=== PATIENT | male | born 1970 | race Two or more races ===

== ENCOUNTER 2022-09-30 15:59 | Inpatient (IN) | payer MEDICAID, OTHER ==
[~2022-09-30] VITALS: Ht 172.7 cm; Wt 107.6 kg
[2022-09-30] MEDS ORDERED: ETOMIDATE (2MG/ML) 20ML VIAL IV ONE ×2 (16:03→16:45)
[2022-09-30] MEDS ORDERED: ROCURONIUM 10MG/ML 10ML VIAL IV ONE ×2 (16:04→16:45)
[2022-09-30 17:00] LABS: Basophils # (auto) 0.1 10 ^3/uL (0-0.2); Basophils % (auto) 0.7 % (0.0-2.0); Eosinophils # (auto) 0.2 10 ^3/uL (0-0.8); Eosinophils % (auto) 1.3 % (0.0-7.0); Hematocrit 46.6 % (41.0-53.0); Hemoglobin 15.3 g/dL (13.5-17.5); Lymphocytes # (auto) 5.8 10 ^3/uL (0.4-5.4); Lymphocytes % (auto) 42.6 % (10.0-50.0); Mean Corpuscular Hemoglobin 28.8 pg (28.0-32.0); Mean Corpuscular Hgb Conc. 32.9 g/dL (32.0-36.0); Mean Corpuscular Volume 87.4 fL (80.0-100.0); Monocytes # (auto) 0.6 10 ^3/uL (0-1.3); Monocytes % (auto) 4.2 % (0.0-12.0); Neutrophils % (auto) 51.2 % (37.0-80.0); Nucleated Red Blood Cells % 0.2 %; Red Blood Cells 5.33 10^6/uL (4.5-5.90); Red Cell Distribution Width 14.4 % (11.8-14.3); White Blood Cell 13.6 10^3/uL (4.4-10.8)
[2022-09-30] MEDS: NOREPINEPHRINE 8 MG/250ML KIT 250 ML IV SCH (17:00)
[2022-09-30] MEDS ORDERED: IOHEXOL 350 MG/ML 100ML IJ ONE (17:15)
[2022-09-30 17:16] LABS: Albumin 3.3 g/dL (3.4-5.0); Calcium 8.5 mg/dL (8.5-10.1); Magnesium 2.9 mg/dL (1.6-2.6); Potassium 3.3 mmol/L (3.5-5.1)
[2022-09-30 17:19] LABS: BUN/Creatinine Ratio 11.9 (10.0-20.0); Bilirubin, Total 0.9 mg/dL (0.2-1.0); Total Protein 6.8 g/dL (6.4-8.2)
[2022-09-30 17:20] LABS: Lactic Acid w/Reflex 9.6 mmol/L (0.4-2.0)
[2022-09-30 17:30] VITALS: BP 169/130
[2022-09-30] MEDS ORDERED: fentaNYL Drip 2500mCg/250mlNS 250 ML IV ONE (18:07)
[2022-09-30] MEDS: MIDAZOLAM DRIP 50 mg/50mL 50 ML IV SCH (19:06)
[2022-09-30] MEDS: fentaNYL Drip 2500mCg/250mlNS 250 ML IV SCH (19:15)
[2022-09-30 20:30] VITALS: BP 111/85
[2022-09-30] MEDS ORDERED: VANCOMYCIN PER PHARMACY 0 MG IV SCH (21:30)
[2022-09-30] MEDS ORDERED: cefTRIAXone 1GM/50ML D5W 50 ML IV ONE (21:30)
[2022-09-30] MEDS ORDERED: SOD CHL 0.9%/ KCL 20MEQ 1,000 ML IV ONE (21:45)
[2022-09-30] MEDS ORDERED: VANCOMYCIN 1GM/250ML 250 ML IV ONE (21:45)
[2022-09-30] MEDS ORDERED: ONDANSETRON HCL 4 MG/2 ML VIAL IV PRN (21:45)
[2022-09-30] MEDS ORDERED: SODIUM CHLORIDE 0.9% 1,000 ML IV SCH (21:45)
[2022-09-30] MEDS ORDERED: DEXTROSE (50%) 50ML SYRG IV PRN (21:45)
[2022-09-30] MEDS ORDERED: HEPARIN DRIP/D5W 100UNITS/ML 250 ML IV SCH (21:45)
[2022-09-30] MEDS ORDERED: HEPARIN SODIUM (PORCINE) 5000 UNITS/ML 1ML VIAL IV ONE (21:45)
[2022-09-30] MEDS: SOD CHL 0.9%/ KCL 20MEQ 1,000 ML IV SCH (22:00)
[2022-09-30 22:42] LABS: Basophils # (auto) 0.1 10 ^3/uL (0-0.2); Basophils % (auto) 0.3 % (0.0-2.0); Eosinophils # (auto) 0 10 ^3/uL (0-0.8); Eosinophils % (auto) 0.1 % (0.0-7.0); Lymphocytes # (auto) 1.6 10 ^3/uL (0.4-5.4); Lymphocytes % (auto) 8.6 % (10.0-50.0); Mean Corpuscular Hemoglobin 28.9 pg (28.0-32.0); Monocytes # (auto) 1.2 10 ^3/uL (0-1.3); Monocytes % (auto) 6.6 % (0.0-12.0); Neutrophils # (auto) 15.7 10 ^3/uL (1.6-8.6); Neutrophils % (auto) 84.4 % (37.0-80.0); Red Blood Cells 5.53 10^6/uL (4.5-5.90); Red Cell Distribution Width 14.1 % (11.8-14.3); White Blood Cell 18.6 10^3/uL (4.4-10.8)
[2022-09-30 22:50] VITALS: BP 108/81
[2022-09-30 22:50] LABS: INR 1.08 (0.9-1.15); Partial Thromboplastin Time 27.5 sec (24.6-33.4)
[2022-09-30] MEDS ORDERED: NITROGLYCERIN 0.4 MG SL TAB SL PRN (23:45)
[2022-09-30] MEDS ORDERED: MORPHINE SULFATE INJ 2 MG/ml SYRG IV PRN (23:45)
[2022-10-01] VITALS (89 sets, daily range): BP systolic 89–158; BP diastolic 59–101
[2022-10-01] MEDS: ACCU-CHEK COMFORT CURVE STRIP VI SCH ×6 (02:25→20:00)
[2022-10-01] MEDS: InsuLIN REG 1unit/0.01ml Soln (100units/ml) SC SCH ×6 (04:00→20:00)
[2022-10-01 04:40] LABS: Basophils # (auto) 0 10 ^3/uL (0-0.2); Basophils % (auto) 0.3 % (0.0-2.0); Eosinophils # (auto) 0 10 ^3/uL (0-0.8); Hematocrit 52.5 % (41.0-53.0); Hemoglobin 17.2 g/dL (13.5-17.5); Lymphocytes # (auto) 1.4 10 ^3/uL (0.4-5.4); Lymphocytes % (auto) 9.1 % (10.0-50.0); Mean Corpuscular Hemoglobin 29.2 pg (28.0-32.0); Mean Corpuscular Hgb Conc. 32.9 g/dL (32.0-36.0); Mean Corpuscular Volume 88.9 fL (80.0-100.0); Monocytes # (auto) 1.2 10 ^3/uL (0-1.3); Monocytes % (auto) 7.5 % (0.0-12.0); Neutrophils % (auto) 83.1 % (37.0-80.0); Nucleated Red Blood Cells % 0.1 %; Red Cell Distribution Width 14.7 % (11.8-14.3); White Blood Cell 15.7 10^3/uL (4.4-10.8)
[2022-10-01 04:44] LABS: Chloride 109 mmol/L (98-107); Potassium 4.1 mmol/L (3.5-5.1); Sodium 137 mmol/L (136-145)
[2022-10-01 04:49] LABS: Alanine Aminotransferase 186 U/L (16-61); Albumin 3.6 g/dL (3.4-5.0); Anion Gap 8 (5-15); Aspartate Aminotransferase 170 U/L (15-37); BUN/Creatinine Ratio 14.8 (10.0-20.0); Blood Urea Nitrogen 23 mg/dL (7-18); Calcium 8.7 mg/dL (8.5-10.1); Carbon Dioxide 20 mmol/L (21-32); GFR African American 61 mL/min; GFR Non-African American 51 mL/min; Glucose 124 mg/dL (74-106)
[2022-10-01 04:51] LABS: Alkaline Phosphatase 82 U/L (45-117); Bilirubin, Total 1.1 mg/dL (0.2-1.0); Total Protein 7.8 g/dL (6.4-8.2)
[2022-10-01 05:43] LABS: INR 1.12 (0.9-1.15)
[2022-10-01] MEDS: SOD CHL 0.9%/ KCL 20MEQ 1,000 ML IV SCH ×2 (07:46→18:55)
[2022-10-01] MEDS: cefTRIAXone 1GM/50ML D5W 50 ML IV SCH (09:13)
[2022-10-01 09:43] LABS: INR 1.1 (0.9-1.15); Partial Thromboplastin Time 66.4 sec (24.6-33.4)
[2022-10-01] MEDS: MIDAZOLAM DRIP 50 mg/50mL 50 ML IV SCH (10:02)
[2022-10-01] MEDS: FAMOTIDINE (10MG/ML) 2ML VL IV SCH (10:07)
[2022-10-01] MEDS: VANCOMYCIN 1GM/250ML 250 ML IV SCH (10:08)
[2022-10-01 12:35] LABS: Urine Bacteria FEW /hpf (None Seen); Urine Blood 2+ /uL (Negative); Urine Specific Gravity 1.036 (1.001-1.035); Urine WBC 3 /hpf (0 - 3)
[2022-10-01 13:01] LABS: Protein, Urine 55.7 mg/dL (0.0-11.9)
[2022-10-01 16:43] LABS: INR 1.12 (0.9-1.15)
[2022-10-01 16:48] LABS: Partial Thromboplastin Time 83.6 sec (24.6-33.4)
[2022-10-01] MEDS: NOREPINEPHRINE 8 MG/250ML KIT 250 ML IV SCH (17:00)
[2022-10-01] MEDS ORDERED: HEPARIN DRIP/D5W 100UNITS/ML 250 ML IV SCH (17:00)
[2022-10-01] MEDS: fentaNYL Drip 2500mCg/250mlNS 250 ML IV SCH (18:15)
[2022-10-02] VITALS (87 sets, daily range): BP systolic 88–166; BP diastolic 57–116
[2022-10-02] MEDS: ACCU-CHEK COMFORT CURVE STRIP VI SCH ×6 (00:25→20:00)
[2022-10-02 00:28] LABS: INR 1.1 (0.9-1.15); Partial Thromboplastin Time 57.3 sec (24.6-33.4)
[2022-10-02] MEDS: SOD CHL 0.9%/ KCL 20MEQ 1,000 ML IV SCH ×2 (03:36→14:54)
[2022-10-02] MEDS: VANCOMYCIN 1GM/250ML 250 ML IV SCH ×2 (03:36→23:59)
[2022-10-02] MEDS: InsuLIN REG 1unit/0.01ml Soln (100units/ml) SC SCH ×6 (04:00→20:00)
[2022-10-02 06:39] LABS: Basophils # (auto) 0.1 10 ^3/uL (0-0.2); Basophils % (auto) 0.7 % (0.0-2.0); Eosinophils # (auto) 0.1 10 ^3/uL (0-0.8); Eosinophils % (auto) 0.7 % (0.0-7.0); Hematocrit 39.3 % (41.0-53.0); Hemoglobin 13.3 g/dL (13.5-17.5); Lymphocytes # (auto) 2.4 10 ^3/uL (0.4-5.4); Lymphocytes % (auto) 19.7 % (10.0-50.0); Mean Corpuscular Hemoglobin 29.5 pg (28.0-32.0); Mean Corpuscular Hgb Conc. 33.9 g/dL (32.0-36.0); Monocytes # (auto) 0.7 10 ^3/uL (0-1.3); Monocytes % (auto) 6.1 % (0.0-12.0); Neutrophils # (auto) 8.9 10 ^3/uL (1.6-8.6); Neutrophils % (auto) 72.8 % (37.0-80.0); Red Blood Cells 4.51 10^6/uL (4.5-5.90); Red Cell Distribution Width 14.4 % (11.8-14.3); White Blood Cell 12.2 10^3/uL (4.4-10.8)
[2022-10-02] MEDS ORDERED: ACETAMINOPHEN 650 MG RECT SUPP PR ONE (06:45)
[2022-10-02] MEDS ORDERED: IODIXANOL 320MG/ML 100ML BTL IV ONE ×3 (07:35→08:42)
[2022-10-02] MEDS ORDERED: LIDOCAINE 2%HCL (LOCAL ANESTH.) INJ 20ML MDV ONE (07:35)
[2022-10-02] MEDS ORDERED: ANGIOMAX 250 MG VIAL IV ONE ×2 (07:47→08:34)
[2022-10-02] MEDS ORDERED: SODIUM CHL 0.9% 50 ML ONE ×2 (07:47→08:34)
[2022-10-02 08:25] LABS: BUN/Creatinine Ratio 12.2 (10.0-20.0); Potassium 3.5 mmol/L (3.5-5.1)
[2022-10-02 08:26] LABS: Albumin 2.7 g/dL (3.4-5.0); Bilirubin, Total 1.3 mg/dL (0.2-1.0); Calcium 8.3 mg/dL (8.5-10.1); Phosphorus 1.7 mg/dL (2.5-4.90); Total Protein 6.4 g/dL (6.4-8.2); Uric Acid 5.4 mg/dL (3.5-7.2)
[2022-10-02] MEDS ORDERED: TICAGRELOR 90 MG TAB ONE (08:53)
[2022-10-02] MEDS ORDERED: ASPirin 325 MG TAB ONE (08:53)
[2022-10-02] MEDS: ASPirin 81 mg TAB PO SCH (10:00)
[2022-10-02] MEDS: TICAGRELOR 90 MG TAB PO SCH (10:00)
[2022-10-02] MEDS: FAMOTIDINE (10MG/ML) 2ML VL IV SCH (10:09)
[2022-10-02] MEDS: cefTRIAXone 1GM/50ML D5W 50 ML IV SCH (10:09)
[2022-10-02] MEDS ORDERED: ACETAMINOPHEN 500 MG TAB PO ONE (14:30)
[2022-10-02] MEDS: ACETAMINOPHEN 500 MG TAB PO PRN (14:53)
[2022-10-02] MEDS ORDERED: DEXTROSE 10% 250 ML IV ONE (16:59)
[2022-10-02] MEDS: NOREPINEPHRINE 8 MG/250ML KIT 250 ML IV SCH (17:00)
[2022-10-02] MEDS: SODIUM CHLORIDE 0.9% 1,000 ML IV SCH (17:12)
[2022-10-02 17:36] LABS: BUN/Creatinine Ratio 9.3 (10.0-20.0); Calcium 7.9 mg/dL (8.5-10.1); Potassium 3.6 mmol/L (3.5-5.1)
[2022-10-02] MEDS: ALBUTEROL SULF 2.5 MG/0.5ML(0.5%) NEB SOLN NEB SCH ×2 (18:13→22:06)
[2022-10-02] MEDS: IPRATROPIUM BROM 0.5 MG/2.5ML INH SOL NEB SCH ×2 (18:13→22:06)
[2022-10-02] MEDS: MIDAZOLAM DRIP 50 mg/50mL 50 ML IV SCH (18:18)
[2022-10-02] MEDS: IBUPROFEN 100MG/5ML ORAL SUSP 100 MG/5 ML UD GT PRN (21:29)
[2022-10-02] MEDS: METOPROLOL TARTRATE 25 MG TAB PO SCH (22:00)
[2022-10-03] VITALS (103 sets, daily range): BP systolic 77–187; BP diastolic 43–124
[2022-10-03] MEDS: TICAGRELOR 90 MG TAB PO SCH ×3 (00:02→22:02)
[2022-10-03] MEDS: ACETAMINOPHEN 500 MG TAB PO PRN ×2 (00:12→11:41)
[2022-10-03] MEDS: ACCU-CHEK COMFORT CURVE STRIP VI SCH ×7 (00:13→23:48)
[2022-10-03] MEDS: fentaNYL Drip 2500mCg/250mlNS 250 ML IV SCH ×2 (00:53→18:15)
[2022-10-03] MEDS: NOREPINEPHRINE 8 MG/250ML KIT 250 ML IV SCH (01:51)
[2022-10-03] MEDS: ALBUTEROL SULF 2.5 MG/0.5ML(0.5%) NEB SOLN NEB SCH ×6 (02:05→22:03)
[2022-10-03] MEDS: IPRATROPIUM BROM 0.5 MG/2.5ML INH SOL NEB SCH ×6 (02:05→22:03)
[2022-10-03] MEDS: MIDAZOLAM DRIP 50 mg/50mL 50 ML IV SCH ×2 (02:45→06:41)
[2022-10-03] MEDS: InsuLIN REG 1unit/0.01ml Soln (100units/ml) SC SCH ×7 (04:00→23:48)
[2022-10-03 04:12] LABS: Hematocrit 40.3 % (41.0-53.0)
[2022-10-03 04:20] LABS: Anion Gap 9 (5-15); BUN/Creatinine Ratio 10.6 (10.0-20.0); Blood Urea Nitrogen 12 mg/dL (7-18); Carbon Dioxide 16 mmol/L (21-32); Chloride 110 mmol/L (98-107); GFR African American 88 mL/min; GFR Non-African American 73 mL/min; Glucose 107 mg/dL (74-106); Potassium 3.4 mmol/L (3.5-5.1); Sodium 135 mmol/L (136-145)
[2022-10-03 05:01] LABS: Basophils # (auto) 0.1 10 ^3/uL (0-0.2); Basophils % (auto) 0.6 % (0.0-2.0); Eosinophils # (auto) 0.3 10 ^3/uL (0-0.8); Eosinophils % (auto) 2.4 % (0.0-7.0); Hemoglobin 13.7 g/dL (13.5-17.5); Lymphocytes # (auto) 2.8 10 ^3/uL (0.4-5.4); Lymphocytes % (auto) 23.1 % (10.0-50.0); Mean Corpuscular Hemoglobin 29.1 pg (28.0-32.0); Mean Corpuscular Hgb Conc. 34.1 g/dL (32.0-36.0); Mean Corpuscular Volume 85.6 fL (80.0-100.0); Monocytes # (auto) 1.3 10 ^3/uL (0-1.3); Monocytes % (auto) 10.5 % (0.0-12.0); Neutrophils # (auto) 7.6 10 ^3/uL (1.6-8.6); Neutrophils % (auto) 63.4 % (37.0-80.0); Nucleated Red Blood Cells % 0.4 %; Red Cell Distribution Width 14.4 % (11.8-14.3)
[2022-10-03] MEDS: SODIUM CHLORIDE 0.9% 1,000 ML IV SCH (07:55)
[2022-10-03] MEDS ORDERED: VANCOMYCIN 1GM/250ML 250 ML IV SCH (08:00)
[2022-10-03] MEDS: ASPirin 81 mg TAB PO SCH (10:55)
[2022-10-03] MEDS: FAMOTIDINE (10MG/ML) 2ML VL IV SCH (10:55)
[2022-10-03] MEDS: METOPROLOL TARTRATE 25 MG TAB PO SCH ×2 (10:55→22:02)
[2022-10-03] MEDS: cefTRIAXone 1GM/50ML D5W 50 ML IV SCH (10:56)
[2022-10-03] MEDS: POTASSIUM CHL 20MEQ/100ML 100 ML IV SCH ×3 (11:50→16:01)
[2022-10-03] MEDS ORDERED: hydrALAZINE HCL 20 MG/ML VL ONE (12:54)
[2022-10-03] MEDS ORDERED: hydrALAZINE HCL 20 MG/ML VL IV PRN (13:00)
[2022-10-03] MEDS ORDERED: PROPOFOL 100 ML IV ONE (15:17)
[2022-10-03] MEDS: PROPOFOL 100 ML IV SCH ×2 (15:45→19:54)
[2022-10-03] MEDS: DEXTROSE 10% 250 ML IV PRN (17:15)
[2022-10-03] MEDS: ATORVASTATIN 20 MG TAB PO SCH ×2 (22:02)
[2022-10-04] VITALS (101 sets, daily range): BP systolic 79–160; BP diastolic 32–101
[2022-10-04] MEDS: PROPOFOL 100 ML IV SCH ×3 (00:24→19:31)
[2022-10-04] MEDS: IPRATROPIUM BROM 0.5 MG/2.5ML INH SOL NEB SCH ×6 (01:53→22:14)
[2022-10-04] MEDS: ALBUTEROL SULF 2.5 MG/0.5ML(0.5%) NEB SOLN NEB SCH ×6 (01:53→22:14)
[2022-10-04] MEDS: InsuLIN REG 1unit/0.01ml Soln (100units/ml) SC SCH ×5 (04:00→20:00)
[2022-10-04 04:12] LABS: Basophils # (auto) 0.1 10 ^3/uL (0-0.2); Basophils % (auto) 0.5 % (0.0-2.0); Eosinophils # (auto) 0.3 10 ^3/uL (0-0.8); Eosinophils % (auto) 2.3 % (0.0-7.0); Hematocrit 37.5 % (41.0-53.0); Hemoglobin 12.8 g/dL (13.5-17.5); Lymphocytes # (auto) 1.4 10 ^3/uL (0.4-5.4); Lymphocytes % (auto) 11.9 % (10.0-50.0); Mean Corpuscular Hemoglobin 29.2 pg (28.0-32.0); Mean Corpuscular Hgb Conc. 34.2 g/dL (32.0-36.0); Mean Corpuscular Volume 85.4 fL (80.0-100.0); Monocytes % (auto) 8.7 % (0.0-12.0); Neutrophils # (auto) 8.9 10 ^3/uL (1.6-8.6); Neutrophils % (auto) 76.6 % (37.0-80.0); Red Blood Cells 4.39 10^6/uL (4.5-5.90); Red Cell Distribution Width 14.2 % (11.8-14.3); White Blood Cell 11.6 10^3/uL (4.4-10.8)
[2022-10-04] MEDS: ACCU-CHEK COMFORT CURVE STRIP VI SCH ×5 (04:27→20:09)
[2022-10-04] MEDS: SODIUM CHLORIDE 0.9% 1,000 ML IV SCH ×2 (04:31→17:43)
[2022-10-04 04:33] LABS: Potassium 3.5 mmol/L (3.5-5.1)
[2022-10-04 04:37] LABS: BUN/Creatinine Ratio 9.8 (10.0-20.0); Calcium 8.6 mg/dL (8.5-10.1)
[2022-10-04] MEDS: cefTRIAXone 1GM/50ML D5W 50 ML IV SCH (08:06)
[2022-10-04] MEDS: TICAGRELOR 90 MG TAB PO SCH ×2 (09:44→21:59)
[2022-10-04] MEDS: ASPirin 81 mg TAB PO SCH (09:44)
[2022-10-04] MEDS: METOPROLOL TARTRATE 25 MG TAB PO SCH ×2 (09:44→21:59)
[2022-10-04] MEDS: FAMOTIDINE (10MG/ML) 2ML VL IV SCH (09:44)
[2022-10-04] MEDS ORDERED: PIPERACILLIN-TAZOB 3.375GM 100 ML IV ONE (10:45)
[2022-10-04] MEDS: fentaNYL Drip 2500mCg/250mlNS 250 ML IV SCH (15:30)
[2022-10-04] MEDS: NOREPINEPHRINE 8 MG/250ML KIT 250 ML IV SCH (17:00)
[2022-10-04] MEDS: MIDAZOLAM DRIP 50 mg/50mL 50 ML IV SCH ×2 (17:00→21:45)
[2022-10-04] MEDS: ACETAMINOPHEN 500 MG TAB PO PRN (18:16)
[2022-10-04] MEDS: PIPERACILLIN-TAZOB 3.375GM 100 ML IV SCH (18:16)
[2022-10-04] MEDS: ATORVASTATIN 20 MG TAB PO SCH (21:59)
[2022-10-04] MEDS: IBUPROFEN 100MG/5ML ORAL SUSP 100 MG/5 ML UD GT PRN (22:20)
[2022-10-05] VITALS (99 sets, daily range): BP systolic 89–144; BP diastolic 47–111
[2022-10-05] MEDS: ACCU-CHEK COMFORT CURVE STRIP VI SCH ×6 (00:16→20:16)
[2022-10-05] MEDS: ALBUTEROL SULF 2.5 MG/0.5ML(0.5%) NEB SOLN NEB SCH ×6 (02:20→22:08)
[2022-10-05] MEDS: IPRATROPIUM BROM 0.5 MG/2.5ML INH SOL NEB SCH ×6 (02:20→22:08)
[2022-10-05] MEDS: PIPERACILLIN-TAZOB 3.375GM 100 ML IV SCH ×3 (03:23→16:43)
[2022-10-05] MEDS: SODIUM CHLORIDE 0.9% 1,000 ML IV SCH (03:23)
[2022-10-05] MEDS: MIDAZOLAM DRIP 50 mg/50mL 50 ML IV SCH (03:28)
[2022-10-05] MEDS: InsuLIN REG 1unit/0.01ml Soln (100units/ml) SC SCH ×6 (04:00→20:00)
[2022-10-05 04:35] LABS: Basophils # (auto) 0 10 ^3/uL (0-0.2); Basophils % (auto) 0.5 % (0.0-2.0); Eosinophils # (auto) 0.4 10 ^3/uL (0-0.8); Eosinophils % (auto) 4.8 % (0.0-7.0); Hematocrit 33.8 % (41.0-53.0); Hemoglobin 11.5 g/dL (13.5-17.5); Lymphocytes # (auto) 2.2 10 ^3/uL (0.4-5.4); Lymphocytes % (auto) 25.2 % (10.0-50.0); Mean Corpuscular Hemoglobin 29.8 pg (28.0-32.0); Mean Corpuscular Hgb Conc. 33.9 g/dL (32.0-36.0); Mean Corpuscular Volume 88.1 fL (80.0-100.0); Monocytes # (auto) 0.9 10 ^3/uL (0-1.3); Monocytes % (auto) 9.8 % (0.0-12.0); Neutrophils # (auto) 5.2 10 ^3/uL (1.6-8.6); Neutrophils % (auto) 59.7 % (37.0-80.0); Red Blood Cells 3.84 10^6/uL (4.5-5.90); Red Cell Distribution Width 14.1 % (11.8-14.3); White Blood Cell 8.8 10^3/uL (4.4-10.8)
[2022-10-05 04:59] LABS: BUN/Creatinine Ratio 17.5 (10.0-20.0); Calcium 8.5 mg/dL (8.5-10.1); Potassium 3.3 mmol/L (3.5-5.1)
[2022-10-05] MEDS: NOREPINEPHRINE 8 MG/250ML KIT 250 ML IV SCH (07:16)
[2022-10-05] MEDS: FAMOTIDINE (10MG/ML) 2ML VL IV SCH (07:55)
[2022-10-05] MEDS: METOPROLOL TARTRATE 25 MG TAB PO SCH ×2 (07:55→22:00)
[2022-10-05] MEDS: ASPirin 81 mg TAB PO SCH (07:55)
[2022-10-05] MEDS: TICAGRELOR 90 MG TAB PO SCH ×2 (07:56→21:50)
[2022-10-05] MEDS: PROPOFOL 100 ML IV SCH (15:33)
[2022-10-05] MEDS: fentaNYL Drip 2500mCg/250mlNS 250 ML IV SCH ×2 (16:16→19:17)
[2022-10-05] MEDS: ATORVASTATIN 20 MG TAB PO SCH (21:49)
[2022-10-06] VITALS (104 sets, daily range): BP systolic 95–154; BP diastolic 58–107
[2022-10-06] MEDS: PROPOFOL 100 ML IV SCH ×4 (00:25→23:50)
[2022-10-06] MEDS: ACCU-CHEK COMFORT CURVE STRIP VI SCH ×6 (00:40→20:00)
[2022-10-06] MEDS: ALBUTEROL SULF 2.5 MG/0.5ML(0.5%) NEB SOLN NEB SCH ×6 (02:11→22:00)
[2022-10-06] MEDS: IPRATROPIUM BROM 0.5 MG/2.5ML INH SOL NEB SCH ×6 (02:11→22:00)
[2022-10-06] MEDS: SODIUM CHLORIDE 0.9% 1,000 ML IV SCH ×2 (02:35→11:16)
[2022-10-06] MEDS: PIPERACILLIN-TAZOB 3.375GM 100 ML IV SCH ×3 (02:44→17:11)
[2022-10-06 03:37] LABS: Basophils # (auto) 0 10 ^3/uL (0-0.2); Basophils % (auto) 0.6 % (0.0-2.0); Eosinophils # (auto) 0.5 10 ^3/uL (0-0.8); Eosinophils % (auto) 5.8 % (0.0-7.0); Hematocrit 33.4 % (41.0-53.0); Hemoglobin 11.4 g/dL (13.5-17.5); Lymphocytes # (auto) 1.7 10 ^3/uL (0.4-5.4); Lymphocytes % (auto) 21.7 % (10.0-50.0); Mean Corpuscular Hemoglobin 29.9 pg (28.0-32.0); Mean Corpuscular Hgb Conc. 34.3 g/dL (32.0-36.0); Mean Corpuscular Volume 87.2 fL (80.0-100.0); Monocytes # (auto) 0.8 10 ^3/uL (0-1.3); Monocytes % (auto) 9.7 % (0.0-12.0); Neutrophils # (auto) 4.9 10 ^3/uL (1.6-8.6); Neutrophils % (auto) 62.2 % (37.0-80.0); Red Blood Cells 3.83 10^6/uL (4.5-5.90); Red Cell Distribution Width 13.9 % (11.8-14.3)
[2022-10-06 03:49] LABS: Calcium 8.5 mg/dL (8.5-10.1); Potassium 3.1 mmol/L (3.5-5.1)
[2022-10-06] MEDS: InsuLIN REG 1unit/0.01ml Soln (100units/ml) SC SCH ×6 (04:00→20:00)
[2022-10-06] MEDS: FAMOTIDINE (10MG/ML) 2ML VL IV SCH (08:11)
[2022-10-06] MEDS: TICAGRELOR 90 MG TAB PO SCH ×2 (08:12→22:13)
[2022-10-06] MEDS: METOPROLOL TARTRATE 25 MG TAB PO SCH ×2 (08:12→22:14)
[2022-10-06] MEDS: ASPirin 81 mg TAB PO SCH (08:12)
[2022-10-06] MEDS: POTASSIUM CHL 20MEQ/100ML 100 ML IV SCH ×2 (09:07→10:00)
[2022-10-06] MEDS: MIDAZOLAM DRIP 50 mg/50mL 50 ML IV SCH (09:33)
[2022-10-06] MEDS: NOREPINEPHRINE 8 MG/250ML KIT 250 ML IV SCH (09:33)
[2022-10-06] MEDS: ATORVASTATIN 20 MG TAB PO SCH (22:14)
[2022-10-07] VITALS (98 sets, daily range): BP systolic 81–155; BP diastolic 42–105
[2022-10-07] MEDS: ACCU-CHEK COMFORT CURVE STRIP VI SCH ×6 (00:10→20:00)
[2022-10-07] MEDS: ALBUTEROL SULF 2.5 MG/0.5ML(0.5%) NEB SOLN NEB SCH ×6 (02:06→22:18)
[2022-10-07] MEDS: IPRATROPIUM BROM 0.5 MG/2.5ML INH SOL NEB SCH ×6 (02:06→22:18)
[2022-10-07] MEDS: PIPERACILLIN-TAZOB 3.375GM 100 ML IV SCH ×3 (03:33→18:58)
[2022-10-07] MEDS: PROPOFOL 100 ML IV SCH ×4 (03:33→22:50)
[2022-10-07] MEDS: fentaNYL Drip 2500mCg/250mlNS 250 ML IV SCH ×2 (03:33→19:01)
[2022-10-07] MEDS: SODIUM CHLORIDE 0.9% 1,000 ML IV SCH (03:33)
[2022-10-07] MEDS: InsuLIN REG 1unit/0.01ml Soln (100units/ml) SC SCH ×6 (04:00→20:00)
[2022-10-07 04:20] LABS: Basophils # (auto) 0.1 10 ^3/uL (0-0.2); Basophils % (auto) 0.9 % (0.0-2.0); Eosinophils # (auto) 0.5 10 ^3/uL (0-0.8); Eosinophils % (auto) 5.4 % (0.0-7.0); Hematocrit 34.9 % (41.0-53.0); Hemoglobin 11.9 g/dL (13.5-17.5); Lymphocytes # (auto) 1.9 10 ^3/uL (0.4-5.4); Lymphocytes % (auto) 19.2 % (10.0-50.0); Mean Corpuscular Hemoglobin 29.3 pg (28.0-32.0); Mean Corpuscular Volume 86.2 fL (80.0-100.0); Monocytes # (auto) 0.8 10 ^3/uL (0-1.3); Monocytes % (auto) 7.7 % (0.0-12.0); Neutrophils # (auto) 6.7 10 ^3/uL (1.6-8.6); Neutrophils % (auto) 66.8 % (37.0-80.0); Nucleated Red Blood Cells % 0.1 %; Red Blood Cells 4.05 10^6/uL (4.5-5.90); Red Cell Distribution Width 14.4 % (11.8-14.3)
[2022-10-07] MEDS: ACETAMINOPHEN 500 MG TAB PO PRN ×3 (04:25→18:20)
[2022-10-07 04:37] LABS: Calcium 8.6 mg/dL (8.5-10.1); Potassium 3.8 mmol/L (3.5-5.1)
[2022-10-07 04:40] LABS: BUN/Creatinine Ratio 12.6 (10.0-20.0)
[2022-10-07] MEDS: TICAGRELOR 90 MG TAB PO SCH ×2 (08:33→21:55)
[2022-10-07] MEDS: ASPirin 81 mg TAB PO SCH (08:33)
[2022-10-07] MEDS: FAMOTIDINE (10MG/ML) 2ML VL IV SCH (08:33)
[2022-10-07] MEDS: MIDAZOLAM DRIP 50 mg/50mL 50 ML IV SCH (08:34)
[2022-10-07] MEDS: NOREPINEPHRINE 8 MG/250ML KIT 250 ML IV SCH (08:34)
[2022-10-07] MEDS: METOPROLOL TARTRATE 25 MG TAB PO SCH ×2 (08:34→21:56)
[2022-10-07] MEDS: DEXTROSE 10% 250 ML IV PRN ×2 (15:10→21:54)
[2022-10-07] MEDS: D5W/SOD CHLO 0.9% 1,000 ML IV SCH (17:30)
[2022-10-07] MEDS ORDERED: IBUPROFEN 600 MG TAB PO ONE (21:38)
[2022-10-07] MEDS: IBUPROFEN 100MG/5ML ORAL SUSP 100 MG/5 ML UD GT PRN (21:54)
[2022-10-07] MEDS: ATORVASTATIN 20 MG TAB PO SCH (21:55)
[2022-10-08] VITALS (100 sets, daily range): BP systolic 78–141; BP diastolic 33–96
[2022-10-08] MEDS: ACCU-CHEK COMFORT CURVE STRIP VI SCH ×6 (00:20→20:14)
[2022-10-08] MEDS: ALBUTEROL SULF 2.5 MG/0.5ML(0.5%) NEB SOLN NEB SCH ×6 (02:25→22:20)
[2022-10-08] MEDS: IPRATROPIUM BROM 0.5 MG/2.5ML INH SOL NEB SCH ×6 (02:25→22:21)
[2022-10-08] MEDS: PIPERACILLIN-TAZOB 3.375GM 100 ML IV SCH ×3 (03:04→18:50)
[2022-10-08] MEDS: PROPOFOL 100 ML IV SCH ×5 (03:04→22:50)
[2022-10-08] MEDS: InsuLIN REG 1unit/0.01ml Soln (100units/ml) SC SCH ×6 (03:56→20:00)
[2022-10-08] MEDS: TICAGRELOR 90 MG TAB PO SCH ×2 (09:24→22:04)
[2022-10-08] MEDS: FAMOTIDINE (10MG/ML) 2ML VL IV SCH (09:31)
[2022-10-08] MEDS: ASPirin 81 mg TAB PO SCH (09:59)
[2022-10-08] MEDS: METOPROLOL TARTRATE 25 MG TAB PO SCH ×2 (10:00→22:04)
[2022-10-08] MEDS: IBUPROFEN 100MG/5ML ORAL SUSP 100 MG/5 ML UD GT PRN (14:31)
[2022-10-08] MEDS: MIDAZOLAM DRIP 50 mg/50mL 50 ML IV SCH (17:00)
[2022-10-08] MEDS: NOREPINEPHRINE 8 MG/250ML KIT 250 ML IV SCH (17:00)
[2022-10-08] MEDS: D5W/SOD CHLO 0.9% 1,000 ML IV SCH ×2 (17:40→20:10)
[2022-10-08] MEDS: fentaNYL Drip 2500mCg/250mlNS 250 ML IV SCH (18:50)
[2022-10-08] MEDS: ATORVASTATIN 20 MG TAB PO SCH (22:04)
[2022-10-09] VITALS (102 sets, daily range): BP systolic 84–185; BP diastolic 53–119
[2022-10-09] MEDS: ACCU-CHEK COMFORT CURVE STRIP VI SCH ×6 (00:12→20:52)
[2022-10-09] MEDS: ALBUTEROL SULF 2.5 MG/0.5ML(0.5%) NEB SOLN NEB SCH ×6 (02:11→22:25)
[2022-10-09] MEDS: IPRATROPIUM BROM 0.5 MG/2.5ML INH SOL NEB SCH ×6 (02:11→22:25)
[2022-10-09] MEDS: PROPOFOL 100 ML IV SCH ×3 (02:59→22:36)
[2022-10-09] MEDS: PIPERACILLIN-TAZOB 3.375GM 100 ML IV SCH ×3 (02:59→19:50)
[2022-10-09] MEDS: InsuLIN REG 1unit/0.01ml Soln (100units/ml) SC SCH ×6 (04:00→20:53)
[2022-10-09 08:13] LABS: Basophils # (auto) 0 10 ^3/uL (0-0.2); Basophils % (auto) 0.4 % (0.0-2.0); Eosinophils # (auto) 0.5 10 ^3/uL (0-0.8); Eosinophils % (auto) 6.6 % (0.0-7.0); Hematocrit 44.1 % (41.0-53.0); Lymphocytes # (auto) 1.8 10 ^3/uL (0.4-5.4); Lymphocytes % (auto) 22.8 % (10.0-50.0); Mean Corpuscular Hemoglobin 29.1 pg (28.0-32.0); Mean Corpuscular Volume 85.5 fL (80.0-100.0); Monocytes # (auto) 0.7 10 ^3/uL (0-1.3); Monocytes % (auto) 9.1 % (0.0-12.0); Neutrophils # (auto) 4.9 10 ^3/uL (1.6-8.6); Neutrophils % (auto) 61.1 % (37.0-80.0); Nucleated Red Blood Cells % 0.2 %; Red Blood Cells 5.16 10^6/uL (4.5-5.90); Red Cell Distribution Width 13.9 % (11.8-14.3); White Blood Cell 8.1 10^3/uL (4.4-10.8)
[2022-10-09 08:38] LABS: Potassium 3.7 mmol/L (3.5-5.1)
[2022-10-09 08:44] LABS: BUN/Creatinine Ratio 7.5 (10.0-20.0); Calcium 8.7 mg/dL (8.5-10.1)
[2022-10-09] MEDS: TICAGRELOR 90 MG TAB PO SCH ×2 (11:01→22:26)
[2022-10-09] MEDS: ASPirin 81 mg TAB PO SCH (11:01)
[2022-10-09] MEDS: FAMOTIDINE (10MG/ML) 2ML VL IV SCH (11:01)
[2022-10-09] MEDS: METOPROLOL TARTRATE 25 MG TAB PO SCH ×2 (11:02→23:01)
[2022-10-09] MEDS: D5W/SOD CHLO 0.9% 1,000 ML IV SCH ×2 (11:11→22:50)
[2022-10-09 13:37] LABS: INR 1.08 (0.9-1.15); Partial Thromboplastin Time 30.2 sec (24.6-33.4)
[2022-10-09] MEDS: MIDAZOLAM DRIP 50 mg/50mL 50 ML IV SCH ×2 (13:46→23:06)
[2022-10-09] MEDS ORDERED: LIDOCAINE 1% (LOCAL ANESTH.) PF 5ml SDV ID ONE (15:00)
[2022-10-09] MEDS: NOREPINEPHRINE 8 MG/250ML KIT 250 ML IV SCH (17:00)
[2022-10-09] MEDS: ACETAMINOPHEN 500 MG TAB PO PRN ×2 (17:25→23:01)
[2022-10-09] MEDS: fentaNYL Drip 2500mCg/250mlNS 250 ML IV SCH ×2 (20:57→21:30)
[2022-10-09] MEDS: SODIUM CHLOR 0.9% PF (SALINE LOCK) 10ML VIAL/SYR IV SCH (21:53)
[2022-10-09] MEDS: ATORVASTATIN 20 MG TAB PO SCH (22:26)
[2022-10-10] VITALS (107 sets, daily range): BP systolic 83–124; BP diastolic 48–74
[2022-10-10] MEDS: ACCU-CHEK COMFORT CURVE STRIP VI SCH ×6 (00:22→19:41)
[2022-10-10] MEDS: PROPOFOL 100 ML IV SCH ×7 (01:55→20:56)
[2022-10-10] MEDS: D5W/SOD CHLO 0.9% 1,000 ML IV SCH (02:54)
[2022-10-10] MEDS: IPRATROPIUM BROM 0.5 MG/2.5ML INH SOL NEB SCH ×6 (02:54→22:46)
[2022-10-10] MEDS: ALBUTEROL SULF 2.5 MG/0.5ML(0.5%) NEB SOLN NEB SCH ×6 (02:54→22:46)
[2022-10-10] MEDS: PIPERACILLIN-TAZOB 3.375GM 100 ML IV SCH ×3 (02:59→19:33)
[2022-10-10] MEDS: MIDAZOLAM DRIP 50 mg/50mL 50 ML IV SCH ×7 (03:02→23:07)
[2022-10-10] MEDS: InsuLIN REG 1unit/0.01ml Soln (100units/ml) SC SCH ×6 (04:00→19:41)
[2022-10-10 04:19] LABS: Basophils # (auto) 0 10 ^3/uL (0-0.2); Basophils % (auto) 0.4 % (0.0-2.0); Eosinophils # (auto) 0.5 10 ^3/uL (0-0.8); Eosinophils % (auto) 5.9 % (0.0-7.0); Hematocrit 36.2 % (41.0-53.0); Hemoglobin 12.4 g/dL (13.5-17.5); Lymphocytes % (auto) 25.5 % (10.0-50.0); Mean Corpuscular Hemoglobin 29.2 pg (28.0-32.0); Mean Corpuscular Hgb Conc. 34.2 g/dL (32.0-36.0); Mean Corpuscular Volume 85.3 fL (80.0-100.0); Monocytes # (auto) 0.8 10 ^3/uL (0-1.3); Monocytes % (auto) 9.5 % (0.0-12.0); Neutrophils # (auto) 4.6 10 ^3/uL (1.6-8.6); Neutrophils % (auto) 58.7 % (37.0-80.0); Nucleated Red Blood Cells % 0.1 %; Red Blood Cells 4.25 10^6/uL (4.5-5.90); White Blood Cell 7.9 10^3/uL (4.4-10.8)
[2022-10-10 04:38] LABS: BUN/Creatinine Ratio 10.7 (10.0-20.0); Potassium 3.7 mmol/L (3.5-5.1)
[2022-10-10] MEDS: ACETAMINOPHEN 500 MG TAB PO PRN (04:53)
[2022-10-10] MEDS: fentaNYL Drip 2500mCg/250mlNS 250 ML IV SCH ×2 (09:33→23:09)
[2022-10-10] MEDS: SODIUM CHLOR 0.9% PF (SALINE LOCK) 10ML VIAL/SYR IV SCH ×2 (09:54→22:12)
[2022-10-10] MEDS: ASPirin 81 mg TAB PO SCH (09:54)
[2022-10-10] MEDS: TICAGRELOR 90 MG TAB PO SCH ×2 (09:54→22:20)
[2022-10-10] MEDS: FAMOTIDINE (10MG/ML) 2ML VL IV SCH (09:54)
[2022-10-10] MEDS: METOPROLOL TARTRATE 25 MG TAB PO SCH ×3 (10:00→22:44)
[2022-10-10] MEDS ORDERED: DEXTROSE 10% 250 ML Bag IV PRN (12:15)
[2022-10-10] MEDS: DEXTROSE 10% 250 ML IV PRN (12:36)
[2022-10-10] MEDS: NOREPINEPHRINE 8 MG/250ML KIT 250 ML IV SCH (17:00)
[2022-10-10] MEDS: ATORVASTATIN 20 MG TAB PO SCH (22:19)
[2022-10-11] VITALS (98 sets, daily range): BP systolic 95–154; BP diastolic 51–87
[2022-10-11] MEDS: PROPOFOL 100 ML IV SCH ×6 (00:12→23:17)
[2022-10-11] MEDS: ACCU-CHEK COMFORT CURVE STRIP VI SCH ×6 (00:18→21:05)
[2022-10-11] MEDS: D5W/SOD CHLO 0.9% 1,000 ML IV SCH ×2 (01:30→04:03)
[2022-10-11] MEDS: IPRATROPIUM BROM 0.5 MG/2.5ML INH SOL NEB SCH ×5 (02:38→19:24)
[2022-10-11] MEDS: ALBUTEROL SULF 2.5 MG/0.5ML(0.5%) NEB SOLN NEB SCH ×5 (02:38→19:25)
[2022-10-11] MEDS: PIPERACILLIN-TAZOB 3.375GM 100 ML IV SCH ×3 (03:05→18:28)
[2022-10-11] MEDS: InsuLIN REG 1unit/0.01ml Soln (100units/ml) SC SCH ×6 (04:00→20:36)
[2022-10-11] MEDS: MIDAZOLAM DRIP 50 mg/50mL 50 ML IV SCH ×3 (04:03→21:50)
[2022-10-11 04:30] LABS: Basophils # (auto) 0 10 ^3/uL (0-0.2); Basophils % (auto) 0.3 % (0.0-2.0); Eosinophils # (auto) 0.4 10 ^3/uL (0-0.8); Hematocrit 35.4 % (41.0-53.0); Hemoglobin 12.1 g/dL (13.5-17.5); Lymphocytes # (auto) 1.7 10 ^3/uL (0.4-5.4); Lymphocytes % (auto) 20.1 % (10.0-50.0); Mean Corpuscular Hemoglobin 29.1 pg (28.0-32.0); Mean Corpuscular Hgb Conc. 34.1 g/dL (32.0-36.0); Mean Corpuscular Volume 85.2 fL (80.0-100.0); Monocytes # (auto) 0.8 10 ^3/uL (0-1.3); Neutrophils # (auto) 5.7 10 ^3/uL (1.6-8.6); Neutrophils % (auto) 65.6 % (37.0-80.0); Nucleated Red Blood Cells % 0.1 %; Red Blood Cells 4.15 10^6/uL (4.5-5.90); Red Cell Distribution Width 14.1 % (11.8-14.3); White Blood Cell 8.7 10^3/uL (4.4-10.8)
[2022-10-11 04:49] LABS: BUN/Creatinine Ratio 10.4 (10.0-20.0); Calcium 7.7 mg/dL (8.5-10.1); Potassium 3.6 mmol/L (3.5-5.1)
[2022-10-11] MEDS: SODIUM CHLOR 0.9% PF (SALINE LOCK) 10ML VIAL/SYR IV SCH ×2 (10:00→23:18)
[2022-10-11] MEDS: TICAGRELOR 90 MG TAB PO SCH ×2 (10:51→21:52)
[2022-10-11] MEDS: ASPirin 81 mg TAB PO SCH (10:51)
[2022-10-11] MEDS: FAMOTIDINE (10MG/ML) 2ML VL IV SCH (10:51)
[2022-10-11] MEDS: METOPROLOL TARTRATE 25 MG TAB PO SCH ×2 (10:51→21:53)
[2022-10-11] MEDS: NOREPINEPHRINE 8 MG/250ML KIT 250 ML IV SCH (17:00)
[2022-10-11] MEDS ORDERED: Glucerna 1.2 Cal 1Liter BOTTLE GT SCH (21:15)
[2022-10-11] MEDS: ATORVASTATIN 20 MG TAB PO SCH (21:53)
[2022-10-11] MEDS: fentaNYL Drip 2500mCg/250mlNS 250 ML IV SCH (23:34)
[2022-10-12] VITALS (105 sets, daily range): BP systolic 88–135; BP diastolic 49–79
[2022-10-12] MEDS: MIDAZOLAM DRIP 50 mg/50mL 50 ML IV SCH ×7 (00:01→22:20)
[2022-10-12] MEDS: ACCU-CHEK COMFORT CURVE STRIP VI SCH ×6 (00:22→19:54)
[2022-10-12] MEDS: InsuLIN REG 1unit/0.01ml Soln (100units/ml) SC SCH ×6 (00:30→19:54)
[2022-10-12] MEDS: PROPOFOL 100 ML IV SCH ×6 (02:35→22:59)
[2022-10-12] MEDS: PIPERACILLIN-TAZOB 3.375GM 100 ML IV SCH ×2 (02:59→10:43)
[2022-10-12 03:29] LABS: Basophils # (auto) 0.1 10 ^3/uL (0-0.2); Basophils % (auto) 0.6 % (0.0-2.0); Eosinophils # (auto) 0.5 10 ^3/uL (0-0.8); Eosinophils % (auto) 5.7 % (0.0-7.0); Hematocrit 34.6 % (41.0-53.0); Hemoglobin 11.8 g/dL (13.5-17.5); Lymphocytes # (auto) 2.2 10 ^3/uL (0.4-5.4); Mean Corpuscular Hemoglobin 29.4 pg (28.0-32.0); Mean Corpuscular Hgb Conc. 34.1 g/dL (32.0-36.0); Mean Corpuscular Volume 86.1 fL (80.0-100.0); Monocytes # (auto) 0.9 10 ^3/uL (0-1.3); Monocytes % (auto) 9.8 % (0.0-12.0); Neutrophils # (auto) 5.7 10 ^3/uL (1.6-8.6); Neutrophils % (auto) 60.9 % (37.0-80.0); Nucleated Red Blood Cells % 0.1 %; Red Blood Cells 4.02 10^6/uL (4.5-5.90); Red Cell Distribution Width 14.1 % (11.8-14.3); White Blood Cell 9.4 10^3/uL (4.4-10.8)
[2022-10-12 04:10] LABS: Calcium 8.1 mg/dL (8.5-10.1); Potassium 3.7 mmol/L (3.5-5.1)
[2022-10-12] MEDS: D5W/SOD CHLO 0.9% 1,000 ML IV SCH ×2 (05:49→19:41)
[2022-10-12] MEDS: IPRATROPIUM BROM 0.5 MG/2.5ML INH SOL NEB SCH ×3 (07:06→19:06)
[2022-10-12] MEDS: ALBUTEROL SULF 2.5 MG/0.5ML(0.5%) NEB SOLN NEB SCH ×3 (07:06→19:05)
[2022-10-12] MEDS: TICAGRELOR 90 MG TAB PO SCH ×2 (09:59→22:19)
[2022-10-12] MEDS: FAMOTIDINE (10MG/ML) 2ML VL IV SCH (09:59)
[2022-10-12] MEDS: ASPirin 81 mg TAB PO SCH (09:59)
[2022-10-12] MEDS: METOPROLOL TARTRATE 25 MG TAB PO SCH ×2 (10:00→22:20)
[2022-10-12] MEDS: SODIUM CHLOR 0.9% PF (SALINE LOCK) 10ML VIAL/SYR IV SCH ×2 (10:01→22:26)
[2022-10-12] MEDS: fentaNYL Drip 2500mCg/250mlNS 250 ML IV SCH (10:48)
[2022-10-12] MEDS: NOREPINEPHRINE 8 MG/250ML KIT 250 ML IV SCH (16:51)
[2022-10-12] MEDS: ATORVASTATIN 20 MG TAB PO SCH (22:33)
[2022-10-13] VITALS (104 sets, daily range): BP systolic 101–163; BP diastolic 53–86
[2022-10-13] MEDS: ACCU-CHEK COMFORT CURVE STRIP VI SCH ×6 (00:24→19:52)
[2022-10-13] MEDS: fentaNYL Drip 2500mCg/250mlNS 250 ML IV SCH (00:53)
[2022-10-13] MEDS: MIDAZOLAM DRIP 50 mg/50mL 50 ML IV SCH ×6 (01:52→21:20)
[2022-10-13] MEDS: PROPOFOL 100 ML IV SCH ×6 (02:34→23:09)
[2022-10-13 03:43] LABS: Basophils # (auto) 0 10 ^3/uL (0-0.2); Basophils % (auto) 0.5 % (0.0-2.0); Eosinophils # (auto) 0.6 10 ^3/uL (0-0.8); Hematocrit 34.1 % (41.0-53.0); Hemoglobin 11.8 g/dL (13.5-17.5); Lymphocytes # (auto) 2.3 10 ^3/uL (0.4-5.4); Lymphocytes % (auto) 23.7 % (10.0-50.0); Mean Corpuscular Hemoglobin 29.8 pg (28.0-32.0); Mean Corpuscular Hgb Conc. 34.6 g/dL (32.0-36.0); Mean Corpuscular Volume 86.2 fL (80.0-100.0); Monocytes # (auto) 0.7 10 ^3/uL (0-1.3); Monocytes % (auto) 7.7 % (0.0-12.0); Neutrophils % (auto) 62.1 % (37.0-80.0); Nucleated Red Blood Cells % 0.1 %; Red Blood Cells 3.96 10^6/uL (4.5-5.90); Red Cell Distribution Width 13.9 % (11.8-14.3); White Blood Cell 9.7 10^3/uL (4.4-10.8)
[2022-10-13 03:57] LABS: BUN/Creatinine Ratio 13.3 (10.0-20.0); Calcium 8.1 mg/dL (8.5-10.1); Potassium 3.3 mmol/L (3.5-5.1)
[2022-10-13] MEDS: InsuLIN REG 1unit/0.01ml Soln (100units/ml) SC SCH ×6 (04:00→19:52)
[2022-10-13] MEDS ORDERED: POTASSIUM CHL 20MEQ/100ML 100 ML IV ONE (05:45)
[2022-10-13] MEDS: IPRATROPIUM BROM 0.5 MG/2.5ML INH SOL NEB SCH ×3 (06:24→19:16)
[2022-10-13] MEDS: ALBUTEROL SULF 2.5 MG/0.5ML(0.5%) NEB SOLN NEB SCH ×3 (06:25→19:16)
[2022-10-13] MEDS: D5W/SOD CHLO 0.9% 1,000 ML IV SCH ×2 (09:30→22:33)
[2022-10-13] MEDS: FAMOTIDINE (10MG/ML) 2ML VL IV SCH (09:31)
[2022-10-13] MEDS: METOPROLOL TARTRATE 25 MG TAB PO SCH ×2 (09:31→21:24)
[2022-10-13] MEDS: TICAGRELOR 90 MG TAB PO SCH ×2 (09:31→21:22)
[2022-10-13] MEDS: ASPirin 81 mg TAB PO SCH (09:32)
[2022-10-13] MEDS: SODIUM CHLOR 0.9% PF (SALINE LOCK) 10ML VIAL/SYR IV SCH ×2 (10:00→21:27)
[2022-10-13] MEDS: NOREPINEPHRINE 8 MG/250ML KIT 250 ML IV SCH (17:00)
[2022-10-13] MEDS: ACETAMINOPHEN 500 MG TAB PO PRN (19:52)
[2022-10-13] MEDS: ATORVASTATIN 20 MG TAB PO SCH (21:22)
[2022-10-14] VITALS (101 sets, daily range): BP systolic 85–146; BP diastolic 45–98
[2022-10-14] MEDS: fentaNYL Drip 2500mCg/250mlNS 250 ML IV SCH ×2 (00:22→12:44)
[2022-10-14] MEDS: MIDAZOLAM DRIP 50 mg/50mL 50 ML IV SCH ×6 (01:06→20:37)
[2022-10-14] MEDS: ACCU-CHEK COMFORT CURVE STRIP VI SCH ×7 (01:17→20:48)
[2022-10-14] MEDS: PROPOFOL 100 ML IV SCH ×5 (02:34→23:51)
[2022-10-14 03:52] LABS: Basophils # (auto) 0.1 10 ^3/uL (0-0.2); Basophils % (auto) 1.1 % (0.0-2.0); Eosinophils # (auto) 0.6 10 ^3/uL (0-0.8); Eosinophils % (auto) 5.3 % (0.0-7.0); Hematocrit 33.2 % (41.0-53.0); Hemoglobin 11.3 g/dL (13.5-17.5); Lymphocytes # (auto) 2.6 10 ^3/uL (0.4-5.4); Lymphocytes % (auto) 24.6 % (10.0-50.0); Mean Corpuscular Hgb Conc. 34.1 g/dL (32.0-36.0); Mean Corpuscular Volume 85.2 fL (80.0-100.0); Monocytes # (auto) 0.9 10 ^3/uL (0-1.3); Monocytes % (auto) 8.4 % (0.0-12.0); Neutrophils # (auto) 6.3 10 ^3/uL (1.6-8.6); Neutrophils % (auto) 60.6 % (37.0-80.0); Red Cell Distribution Width 13.7 % (11.8-14.3); White Blood Cell 10.4 10^3/uL (4.4-10.8)
[2022-10-14] MEDS: InsuLIN REG 1unit/0.01ml Soln (100units/ml) SC SCH ×6 (04:00→20:00)
[2022-10-14 04:05] LABS: Calcium 8.1 mg/dL (8.5-10.1); Potassium 3.7 mmol/L (3.5-5.1)
[2022-10-14 04:07] LABS: BUN/Creatinine Ratio 12.5 (10.0-20.0)
[2022-10-14] MEDS: IPRATROPIUM BROM 0.5 MG/2.5ML INH SOL NEB SCH ×3 (06:38→19:26)
[2022-10-14] MEDS: ALBUTEROL SULF 2.5 MG/0.5ML(0.5%) NEB SOLN NEB SCH ×3 (06:38→19:26)
[2022-10-14] MEDS: D5W/SOD CHLO 0.9% 1,000 ML IV SCH ×2 (09:30→12:19)
[2022-10-14] MEDS: SODIUM CHLOR 0.9% PF (SALINE LOCK) 10ML VIAL/SYR IV SCH ×2 (10:00→21:53)
[2022-10-14] MEDS: FAMOTIDINE (10MG/ML) 2ML VL IV SCH (10:00)
[2022-10-14] MEDS: ASPirin 81 mg TAB PO SCH (11:08)
[2022-10-14] MEDS: TICAGRELOR 90 MG TAB PO SCH ×2 (11:08→21:53)
[2022-10-14] MEDS: METOPROLOL TARTRATE 25 MG TAB PO SCH ×2 (11:09→21:51)
[2022-10-14] MEDS: ACETAMINOPHEN 500 MG TAB PO PRN (11:09)
[2022-10-14] MEDS: NOREPINEPHRINE 8 MG/250ML KIT 250 ML IV SCH (16:56)
[2022-10-14] MEDS: ATORVASTATIN 20 MG TAB PO SCH (21:52)
[2022-10-14] MEDS ORDERED: FUROSEMIDE 40 MG/4 ML VIAL IV ONE (23:15)
[2022-10-15] VITALS (95 sets, daily range): BP systolic 86–144; BP diastolic 48–95
[2022-10-15] MEDS: ACCU-CHEK COMFORT CURVE STRIP VI SCH ×6 (00:01→20:33)
[2022-10-15] MEDS: MIDAZOLAM DRIP 50 mg/50mL 50 ML IV SCH ×7 (00:41→21:08)
[2022-10-15] MEDS: D5W/SOD CHLO 0.9% 1,000 ML IV SCH ×3 (02:00→19:00)
[2022-10-15] MEDS: fentaNYL Drip 2500mCg/250mlNS 250 ML IV SCH ×2 (03:30→13:36)
[2022-10-15] MEDS: PROPOFOL 100 ML IV SCH ×6 (03:32→23:15)
[2022-10-15] MEDS: InsuLIN REG 1unit/0.01ml Soln (100units/ml) SC SCH ×6 (04:00→20:00)
[2022-10-15 04:24] LABS: Basophils # (auto) 0.1 10 ^3/uL (0-0.2); Basophils % (auto) 0.6 % (0.0-2.0); Eosinophils # (auto) 0.3 10 ^3/uL (0-0.8); Eosinophils % (auto) 2.1 % (0.0-7.0); Hematocrit 37.1 % (41.0-53.0); Hemoglobin 12.9 g/dL (13.5-17.5); Lymphocytes # (auto) 1.7 10 ^3/uL (0.4-5.4); Lymphocytes % (auto) 11.7 % (10.0-50.0); Mean Corpuscular Hemoglobin 29.7 pg (28.0-32.0); Mean Corpuscular Hgb Conc. 34.9 g/dL (32.0-36.0); Mean Corpuscular Volume 85.3 fL (80.0-100.0); Monocytes # (auto) 0.8 10 ^3/uL (0-1.3); Monocytes % (auto) 5.7 % (0.0-12.0); Neutrophils # (auto) 11.4 10 ^3/uL (1.6-8.6); Neutrophils % (auto) 79.9 % (37.0-80.0); Nucleated Red Blood Cells % 0.2 %; Red Blood Cells 4.35 10^6/uL (4.5-5.90); Red Cell Distribution Width 14.1 % (11.8-14.3); White Blood Cell 14.3 10^3/uL (4.4-10.8)
[2022-10-15 04:40] LABS: Calcium 7.5 mg/dL (8.5-10.1); Potassium 3.8 mmol/L (3.5-5.1)
[2022-10-15 04:57] LABS: BUN/Creatinine Ratio 15.7 (10.0-20.0)
[2022-10-15] MEDS: FUROSEMIDE 20 MG/2 ML VIAL IV SCH ×2 (06:14→18:19)
[2022-10-15] MEDS: ALBUTEROL SULF 2.5 MG/0.5ML(0.5%) NEB SOLN NEB SCH ×3 (06:26→18:55)
[2022-10-15] MEDS: IPRATROPIUM BROM 0.5 MG/2.5ML INH SOL NEB SCH ×3 (06:26→18:55)
[2022-10-15] MEDS: SODIUM CHLOR 0.9% PF (SALINE LOCK) 10ML VIAL/SYR IV SCH ×2 (10:00→21:57)
[2022-10-15] MEDS: FAMOTIDINE (10MG/ML) 2ML VL IV SCH (10:15)
[2022-10-15] MEDS: METOPROLOL TARTRATE 25 MG TAB PO SCH ×2 (10:15→21:56)
[2022-10-15] MEDS: ASPirin 81 mg TAB PO SCH (10:15)
[2022-10-15] MEDS: TICAGRELOR 90 MG TAB PO SCH ×2 (10:15→21:57)
[2022-10-15] MEDS: ACETAMINOPHEN 500 MG TAB PO PRN (16:22)
[2022-10-15] MEDS: NOREPINEPHRINE 8 MG/250ML KIT 250 ML IV SCH (17:00)
[2022-10-15] MEDS: ATORVASTATIN 20 MG TAB PO SCH (21:56)
[2022-10-16] VITALS (103 sets, daily range): BP systolic 79–167; BP diastolic 36–105
[2022-10-16] MEDS: ACCU-CHEK COMFORT CURVE STRIP VI SCH ×7 (00:02→23:44)
[2022-10-16] MEDS: MIDAZOLAM DRIP 50 mg/50mL 50 ML IV SCH ×7 (00:35→22:58)
[2022-10-16] MEDS: fentaNYL Drip 2500mCg/250mlNS 250 ML IV SCH ×2 (02:42→14:31)
[2022-10-16] MEDS: PROPOFOL 100 ML IV SCH ×6 (03:23→22:13)
[2022-10-16] MEDS: InsuLIN REG 1unit/0.01ml Soln (100units/ml) SC SCH ×7 (04:00→23:50)
[2022-10-16 04:06] LABS: Basophils # (auto) 0.1 10 ^3/uL (0-0.2); Basophils % (auto) 1.1 % (0.0-2.0); Eosinophils # (auto) 0.5 10 ^3/uL (0-0.8); Eosinophils % (auto) 4.1 % (0.0-7.0); Hematocrit 30.4 % (41.0-53.0); Hemoglobin 10.2 g/dL (13.5-17.5); Lymphocytes # (auto) 2.1 10 ^3/uL (0.4-5.4); Lymphocytes % (auto) 18.4 % (10.0-50.0); Mean Corpuscular Hemoglobin 29.2 pg (28.0-32.0); Mean Corpuscular Hgb Conc. 33.5 g/dL (32.0-36.0); Mean Corpuscular Volume 87.2 fL (80.0-100.0); Monocytes # (auto) 0.8 10 ^3/uL (0-1.3); Monocytes % (auto) 7.3 % (0.0-12.0); Neutrophils % (auto) 69.1 % (37.0-80.0); Nucleated Red Blood Cells % 0.2 %; Red Blood Cells 3.49 10^6/uL (4.5-5.90); White Blood Cell 11.6 10^3/uL (4.4-10.8)
[2022-10-16] MEDS: D5W/SOD CHLO 0.9% 1,000 ML IV SCH (05:04)
[2022-10-16 06:02] LABS: Calcium 7.5 mg/dL (8.5-10.1); Potassium 3.4 mmol/L (3.5-5.1)
[2022-10-16 06:05] LABS: BUN/Creatinine Ratio 19.2 (10.0-20.0)
[2022-10-16] MEDS: IPRATROPIUM BROM 0.5 MG/2.5ML INH SOL NEB SCH ×3 (06:36→18:02)
[2022-10-16] MEDS: ALBUTEROL SULF 2.5 MG/0.5ML(0.5%) NEB SOLN NEB SCH ×3 (06:36→18:02)
[2022-10-16] MEDS: FUROSEMIDE 20 MG/2 ML VIAL IV SCH ×2 (07:45→17:16)
[2022-10-16] MEDS: TICAGRELOR 90 MG TAB PO SCH ×2 (09:29→22:21)
[2022-10-16] MEDS: METOPROLOL TARTRATE 25 MG TAB PO SCH ×2 (09:29→22:21)
[2022-10-16] MEDS: ASPirin 81 mg TAB PO SCH (09:29)
[2022-10-16] MEDS: FAMOTIDINE (10MG/ML) 2ML VL IV SCH (09:29)
[2022-10-16] MEDS: SODIUM CHLOR 0.9% PF (SALINE LOCK) 10ML VIAL/SYR IV SCH ×2 (09:29→22:21)
[2022-10-16] MEDS ORDERED: POTASSIUM CHL 20MEQ/100ML 100 ML IV ONE (12:00)
[2022-10-16] MEDS: NOREPINEPHRINE 8 MG/250ML KIT 250 ML IV SCH (17:00)
[2022-10-16] MEDS: ACETAMINOPHEN 500 MG TAB PO PRN (18:21)
[2022-10-16] MEDS: ATORVASTATIN 20 MG TAB PO SCH (22:21)
[2022-10-16] MEDS: IBUPROFEN 100MG/5ML ORAL SUSP 100 MG/5 ML UD GT PRN (23:43)
[2022-10-17] VITALS (103 sets, daily range): BP systolic 78–150; BP diastolic 44–93
[2022-10-17] MEDS: fentaNYL Drip 2500mCg/250mlNS 250 ML IV SCH ×2 (02:20→13:05)
[2022-10-17] MEDS: MIDAZOLAM DRIP 50 mg/50mL 50 ML IV SCH ×6 (02:37→21:59)
[2022-10-17] MEDS: D5W/SOD CHLO 0.9% 1,000 ML IV SCH (02:38)
[2022-10-17] MEDS: InsuLIN REG 1unit/0.01ml Soln (100units/ml) SC SCH ×6 (04:00→23:54)
[2022-10-17 04:24] LABS: Basophils # (auto) 0 10 ^3/uL (0-0.2); Basophils % (auto) 0.2 % (0.0-2.0); Eosinophils # (auto) 0.1 10 ^3/uL (0-0.8); Eosinophils % (auto) 0.8 % (0.0-7.0); Hematocrit 32.6 % (41.0-53.0); Hemoglobin 11.6 g/dL (13.5-17.5); Lymphocytes # (auto) 1.1 10 ^3/uL (0.4-5.4); Lymphocytes % (auto) 6.5 % (10.0-50.0); Mean Corpuscular Hemoglobin 30.5 pg (28.0-32.0); Mean Corpuscular Hgb Conc. 35.5 g/dL (32.0-36.0); Mean Corpuscular Volume 85.8 fL (80.0-100.0); Monocytes # (auto) 0.6 10 ^3/uL (0-1.3); Monocytes % (auto) 3.3 % (0.0-12.0); Neutrophils # (auto) 15.2 10 ^3/uL (1.6-8.6); Neutrophils % (auto) 89.2 % (37.0-80.0); Nucleated Red Blood Cells % 0.1 %; Red Cell Distribution Width 13.8 % (11.8-14.3)
[2022-10-17 04:41] LABS: INR 1.17 (0.9-1.15); Partial Thromboplastin Time 28.5 sec (24.6-33.4)
[2022-10-17 04:45] LABS: Calcium 7.2 mg/dL (8.5-10.1); Potassium 3.2 mmol/L (3.5-5.1)
[2022-10-17] MEDS: PROPOFOL 100 ML IV SCH ×8 (04:48→22:00)
[2022-10-17 05:12] LABS: BUN/Creatinine Ratio 21.5 (10.0-20.0)
[2022-10-17] MEDS: ALBUTEROL SULF 2.5 MG/0.5ML(0.5%) NEB SOLN NEB SCH ×3 (06:21→18:33)
[2022-10-17] MEDS: IPRATROPIUM BROM 0.5 MG/2.5ML INH SOL NEB SCH ×3 (06:21→18:33)
[2022-10-17] MEDS: FUROSEMIDE 20 MG/2 ML VIAL IV SCH ×2 (06:49→17:04)
[2022-10-17] MEDS: ACCU-CHEK COMFORT CURVE STRIP VI SCH ×6 (06:58→23:54)
[2022-10-17] MEDS ORDERED: VANCOMYCIN PER PHARMACY 0 MG IV SCH (08:15)
[2022-10-17] MEDS: POTASSIUM CHL 20MEQ/100ML 100 ML IV SCH ×2 (08:25→09:59)
[2022-10-17] MEDS: FAMOTIDINE (10MG/ML) 2ML VL IV SCH (09:14)
[2022-10-17] MEDS: METOPROLOL TARTRATE 25 MG TAB PO SCH ×2 (09:15→22:00)
[2022-10-17] MEDS: ASPirin 81 mg TAB PO SCH (09:15)
[2022-10-17] MEDS: MEROPENEM 2 GM in SODIUM CHL 0.9% 250 ML IV SCH ×2 (09:16→17:05)
[2022-10-17] MEDS: SODIUM CHLOR 0.9% PF (SALINE LOCK) 10ML VIAL/SYR IV SCH ×2 (09:17→22:49)
[2022-10-17] MEDS: VANCOMYCIN 1GM/250ML 250 ML IV SCH ×2 (11:56→20:26)
[2022-10-17] MEDS: NOREPINEPHRINE 8 MG/250ML KIT 250 ML IV SCH (17:00)
[2022-10-17] MEDS: ATORVASTATIN 20 MG TAB PO SCH (22:48)
[2022-10-18] VITALS (107 sets, daily range): BP systolic 87–175; BP diastolic 47–131
[2022-10-18] MEDS: MEROPENEM 2 GM in SODIUM CHL 0.9% 250 ML IV SCH ×3 (02:06→17:22)
[2022-10-18] MEDS: PROPOFOL 100 ML IV SCH ×5 (02:09→21:12)
[2022-10-18] MEDS: MIDAZOLAM DRIP 50 mg/50mL 50 ML IV SCH ×6 (02:10→21:44)
[2022-10-18] MEDS: fentaNYL Drip 2500mCg/250mlNS 250 ML IV SCH ×2 (02:45→13:11)
[2022-10-18] MEDS: D5W/SOD CHLO 0.9% 1,000 ML IV SCH ×2 (02:55→22:27)
[2022-10-18] MEDS: InsuLIN REG 1unit/0.01ml Soln (100units/ml) SC SCH ×5 (04:00→20:14)
[2022-10-18 04:02] LABS: Basophils # (auto) 0.1 10 ^3/uL (0-0.2); Basophils % (auto) 0.7 % (0.0-2.0); Eosinophils # (auto) 0.3 10 ^3/uL (0-0.8); Eosinophils % (auto) 1.7 % (0.0-7.0); Hematocrit 33.7 % (41.0-53.0); Hemoglobin 11.1 g/dL (13.5-17.5); Lymphocytes # (auto) 1.4 10 ^3/uL (0.4-5.4); Lymphocytes % (auto) 7.3 % (10.0-50.0); Mean Corpuscular Hemoglobin 28.3 pg (28.0-32.0); Mean Corpuscular Hgb Conc. 33.1 g/dL (32.0-36.0); Mean Corpuscular Volume 85.6 fL (80.0-100.0); Monocytes # (auto) 0.6 10 ^3/uL (0-1.3); Monocytes % (auto) 3.2 % (0.0-12.0); Neutrophils # (auto) 16.6 10 ^3/uL (1.6-8.6); Neutrophils % (auto) 87.1 % (37.0-80.0); Red Blood Cells 3.94 10^6/uL (4.5-5.90); Red Cell Distribution Width 14.2 % (11.8-14.3)
[2022-10-18 04:19] LABS: Calcium 8.1 mg/dL (8.5-10.1); Potassium 3.4 mmol/L (3.5-5.1)
[2022-10-18 04:22] LABS: BUN/Creatinine Ratio 22.5 (10.0-20.0)
[2022-10-18] MEDS: VANCOMYCIN 1GM/250ML 250 ML IV SCH ×3 (04:24→19:49)
[2022-10-18] MEDS: ACCU-CHEK COMFORT CURVE STRIP VI SCH ×5 (04:35→20:06)
[2022-10-18] MEDS: ACETAMINOPHEN 500 MG TAB PO PRN (04:51)
[2022-10-18] MEDS: FUROSEMIDE 20 MG/2 ML VIAL IV SCH ×2 (05:39→17:31)
[2022-10-18] MEDS: ALBUTEROL SULF 2.5 MG/0.5ML(0.5%) NEB SOLN NEB SCH ×3 (06:34→18:42)
[2022-10-18] MEDS: IPRATROPIUM BROM 0.5 MG/2.5ML INH SOL NEB SCH ×3 (06:34→18:42)
[2022-10-18] MEDS: ASPirin 81 mg TAB PO SCH (09:26)
[2022-10-18] MEDS: FAMOTIDINE (10MG/ML) 2ML VL IV SCH (09:26)
[2022-10-18] MEDS: METOPROLOL TARTRATE 25 MG TAB PO SCH ×2 (09:29→22:27)
[2022-10-18] MEDS: SODIUM CHLOR 0.9% PF (SALINE LOCK) 10ML VIAL/SYR IV SCH ×2 (10:00→22:26)
[2022-10-18] MEDS ORDERED: POTASSIUM EFFERVESENT TAB 25 MEQ GT ONE (12:30)
[2022-10-18] MEDS: NOREPINEPHRINE 8 MG/250ML KIT 250 ML IV SCH (16:48)
[2022-10-18] MEDS: ATORVASTATIN 20 MG TAB PO SCH (23:18)
[2022-10-19] VITALS (98 sets, daily range): BP systolic 87–213; BP diastolic 46–102
[2022-10-19] MEDS: ACCU-CHEK COMFORT CURVE STRIP VI SCH ×6 (00:22→20:25)
[2022-10-19] MEDS: MEROPENEM 2 GM in SODIUM CHL 0.9% 250 ML IV SCH ×2 (01:09→08:31)
[2022-10-19] MEDS: MIDAZOLAM DRIP 50 mg/50mL 50 ML IV SCH ×7 (01:49→23:10)
[2022-10-19] MEDS: fentaNYL Drip 2500mCg/250mlNS 250 ML IV SCH ×2 (02:22→14:06)
[2022-10-19] MEDS: PROPOFOL 100 ML IV SCH ×5 (03:52→19:34)
[2022-10-19] MEDS: VANCOMYCIN 1GM/250ML 250 ML IV SCH ×3 (04:01→20:11)
[2022-10-19] MEDS: InsuLIN REG 1unit/0.01ml Soln (100units/ml) SC SCH ×6 (04:21→20:00)
[2022-10-19 04:27] LABS: Basophils # (auto) 0.1 10 ^3/uL (0-0.2); Basophils % (auto) 1.3 % (0.0-2.0); Eosinophils # (auto) 0.6 10 ^3/uL (0-0.8); Eosinophils % (auto) 5.5 % (0.0-7.0); Hematocrit 30.1 % (41.0-53.0); Hemoglobin 10.3 g/dL (13.5-17.5); Lymphocytes # (auto) 1.4 10 ^3/uL (0.4-5.4); Lymphocytes % (auto) 13.6 % (10.0-50.0); Mean Corpuscular Hemoglobin 29.2 pg (28.0-32.0); Mean Corpuscular Hgb Conc. 34.3 g/dL (32.0-36.0); Mean Corpuscular Volume 85.4 fL (80.0-100.0); Monocytes # (auto) 0.7 10 ^3/uL (0-1.3); Monocytes % (auto) 6.8 % (0.0-12.0); Neutrophils # (auto) 7.5 10 ^3/uL (1.6-8.6); Neutrophils % (auto) 72.8 % (37.0-80.0); Nucleated Red Blood Cells % 0.1 %; Red Blood Cells 3.53 10^6/uL (4.5-5.90); Red Cell Distribution Width 14.1 % (11.8-14.3); White Blood Cell 10.3 10^3/uL (4.4-10.8)
[2022-10-19 04:41] LABS: Calcium 7.8 mg/dL (8.5-10.1)
[2022-10-19 04:44] LABS: BUN/Creatinine Ratio 17.9 (10.0-20.0)
[2022-10-19 05:00] LABS: Potassium 2.9 mmol/L (3.5-5.1)
[2022-10-19 05:13] LABS: Partial Thromboplastin Time 29.6 sec (24.6-33.4)
[2022-10-19] MEDS: FUROSEMIDE 20 MG/2 ML VIAL IV SCH ×2 (06:00→18:40)
[2022-10-19 06:04] LABS: INR 1.03 (0.9-1.15)
[2022-10-19] MEDS ORDERED: POTASSIUM CHL 20MEQ/100ML 100 ML IV ONE (06:15)
[2022-10-19] MEDS: ALBUTEROL SULF 2.5 MG/0.5ML(0.5%) NEB SOLN NEB SCH ×2 (06:44→18:48)
[2022-10-19] MEDS: IPRATROPIUM BROM 0.5 MG/2.5ML INH SOL NEB SCH ×2 (06:44→18:48)
[2022-10-19] MEDS: NOREPINEPHRINE 8 MG/250ML KIT 250 ML IV SCH (07:45)
[2022-10-19] MEDS: POTASSIUM CHL 20MEQ/100ML 100 ML IV SCH ×4 (08:04→21:21)
[2022-10-19] MEDS ORDERED: fentaNYL CITRATE 100 MCG/2 ML VL ONE (08:12)
[2022-10-19] MEDS ORDERED: HYDROmorphone HCL 2 MG/ML VL/or syr ONE (08:12)
[2022-10-19] MEDS ORDERED: MIDAZOLAM HCL 2MG/2ML 2ml VIAL (1mg/ml) ONE (08:12)
[2022-10-19] MEDS ORDERED: ROCURONIUM 10MG/ML 10ML VIAL IV ONE (08:12)
[2022-10-19] MEDS ORDERED: SODIUM CHLORIDE LOCK 30 ML ONE (08:12)
[2022-10-19] MEDS ORDERED: LIDOCAINE 1% HCL (LOCAL ANESTH.) INJ 20ML MDV ONE (08:16)
[2022-10-19] MEDS ORDERED: BUPIVACAINE W/ EPINEPH 0.25% INJ 50ML MDV ONE (08:23)
[2022-10-19] MEDS ORDERED: ceFAZolin 1GM VL ONE (09:14)
[2022-10-19] MEDS: SODIUM CHLOR 0.9% PF (SALINE LOCK) 10ML VIAL/SYR IV SCH ×2 (10:00→23:12)
[2022-10-19] MEDS: FAMOTIDINE (10MG/ML) 2ML VL IV SCH (10:39)
[2022-10-19] MEDS: ASPirin 81 mg TAB PO SCH (10:51)
[2022-10-19] MEDS: METOPROLOL TARTRATE 25 MG TAB PO SCH ×2 (10:51→22:09)
[2022-10-19] MEDS ORDERED: FUROSEMIDE 20 MG/2 ML VIAL IV ONE (11:15)
[2022-10-19] MEDS ORDERED: LACTULOSE 20Gm/30ML SOLN PO PRN (11:15)
[2022-10-19] MEDS ORDERED: Glucerna 1.2 Cal 1Liter BOTTLE GT SCH (16:15)
[2022-10-19] MEDS: ATORVASTATIN 20 MG TAB PO SCH (22:09)
[2022-10-20] VITALS (106 sets, daily range): BP systolic 87–123; BP diastolic 50–86
[2022-10-20] MEDS: ACCU-CHEK COMFORT CURVE STRIP VI SCH ×6 (00:15→20:31)
[2022-10-20] MEDS: PROPOFOL 100 ML IV SCH ×7 (02:27→22:42)
[2022-10-20] MEDS: fentaNYL Drip 2500mCg/250mlNS 250 ML IV SCH ×2 (02:42→15:25)
[2022-10-20] MEDS: InsuLIN REG 1unit/0.01ml Soln (100units/ml) SC SCH ×6 (04:00→20:00)
[2022-10-20 04:07] LABS: Basophils # (auto) 0.1 10 ^3/uL (0-0.2); Basophils % (auto) 1.3 % (0.0-2.0); Eosinophils # (auto) 0.7 10 ^3/uL (0-0.8); Eosinophils % (auto) 6.8 % (0.0-7.0); Hematocrit 31.8 % (41.0-53.0); Hemoglobin 10.7 g/dL (13.5-17.5); Lymphocytes % (auto) 20.9 % (10.0-50.0); Mean Corpuscular Hemoglobin 28.9 pg (28.0-32.0); Mean Corpuscular Hgb Conc. 33.8 g/dL (32.0-36.0); Mean Corpuscular Volume 85.5 fL (80.0-100.0); Monocytes # (auto) 0.9 10 ^3/uL (0-1.3); Neutrophils # (auto) 6.1 10 ^3/uL (1.6-8.6); Red Blood Cells 3.71 10^6/uL (4.5-5.90); Red Cell Distribution Width 14.1 % (11.8-14.3); White Blood Cell 9.8 10^3/uL (4.4-10.8)
[2022-10-20] MEDS: MIDAZOLAM DRIP 50 mg/50mL 50 ML IV SCH ×3 (04:07→19:34)
[2022-10-20] MEDS: VANCOMYCIN 1GM/250ML 250 ML IV SCH ×3 (04:07→20:12)
[2022-10-20 04:30] LABS: Potassium 3.1 mmol/L (3.5-5.1)
[2022-10-20 04:34] LABS: Calcium 8.2 mg/dL (8.5-10.1)
[2022-10-20] MEDS: FUROSEMIDE 20 MG/2 ML VIAL IV SCH ×2 (05:46→18:21)
[2022-10-20] MEDS: ALBUTEROL SULF 2.5 MG/0.5ML(0.5%) NEB SOLN NEB SCH ×3 (06:25→18:51)
[2022-10-20] MEDS: IPRATROPIUM BROM 0.5 MG/2.5ML INH SOL NEB SCH ×3 (06:25→18:51)
[2022-10-20] MEDS: FAMOTIDINE (10MG/ML) 2ML VL IV SCH (09:36)
[2022-10-20] MEDS: ASPirin 81 mg TAB PO SCH (09:36)
[2022-10-20] MEDS: METOPROLOL TARTRATE 25 MG TAB PO SCH ×2 (09:36→22:08)
[2022-10-20] MEDS: SODIUM CHLOR 0.9% PF (SALINE LOCK) 10ML VIAL/SYR IV SCH ×2 (09:36→22:10)
[2022-10-20] MEDS: NOREPINEPHRINE 8 MG/250ML KIT 250 ML IV SCH (10:04)
[2022-10-20] MEDS: POTASSIUM CHL 20MEQ/100ML 100 ML IV SCH ×2 (11:45→13:33)
[2022-10-20] MEDS: ACETAMINOPHEN 500 MG TAB PO PRN (11:47)
[2022-10-20] MEDS ORDERED: ENOXAPARIN SOD 40 MG/0.4 ML SYRINGE SC ONE (12:00)
[2022-10-20] MEDS: ATORVASTATIN 20 MG TAB PO SCH (22:08)
[2022-10-21] VITALS (108 sets, daily range): BP systolic 84–130; BP diastolic 47–85
[2022-10-21] MEDS: ACCU-CHEK COMFORT CURVE STRIP VI SCH ×6 (00:19→23:29)
[2022-10-21] MEDS: PROPOFOL 100 ML IV SCH ×7 (02:39→23:29)
[2022-10-21] MEDS: MIDAZOLAM DRIP 50 mg/50mL 50 ML IV SCH ×4 (02:40→19:36)
[2022-10-21] MEDS: ACETAMINOPHEN 500 MG TAB PO PRN ×3 (03:27→19:57)
[2022-10-21 03:38] LABS: Basophils # (auto) 0.1 10 ^3/uL (0-0.2); Basophils % (auto) 1.1 % (0.0-2.0); Eosinophils # (auto) 0.7 10 ^3/uL (0-0.8); Eosinophils % (auto) 6.3 % (0.0-7.0); Hematocrit 32.4 % (41.0-53.0); Hemoglobin 10.8 g/dL (13.5-17.5); Lymphocytes # (auto) 2.4 10 ^3/uL (0.4-5.4); Lymphocytes % (auto) 21.5 % (10.0-50.0); Mean Corpuscular Hemoglobin 28.1 pg (28.0-32.0); Mean Corpuscular Hgb Conc. 33.2 g/dL (32.0-36.0); Mean Corpuscular Volume 84.7 fL (80.0-100.0); Monocytes # (auto) 1.2 10 ^3/uL (0-1.3); Monocytes % (auto) 10.5 % (0.0-12.0); Neutrophils # (auto) 6.7 10 ^3/uL (1.6-8.6); Neutrophils % (auto) 60.6 % (37.0-80.0); Nucleated Red Blood Cells % 0.1 %; Red Blood Cells 3.83 10^6/uL (4.5-5.90); Red Cell Distribution Width 14.1 % (11.8-14.3)
[2022-10-21 03:56] LABS: Calcium 8.5 mg/dL (8.5-10.1); Potassium 3.2 mmol/L (3.5-5.1)
[2022-10-21 03:59] LABS: Albumin 1.8 g/dL (3.4-5.0); BUN/Creatinine Ratio 22.1 (10.0-20.0)
[2022-10-21] MEDS: VANCOMYCIN 1GM/250ML 250 ML IV SCH ×2 (04:00→17:28)
[2022-10-21] MEDS: InsuLIN REG 1unit/0.01ml Soln (100units/ml) SC SCH ×6 (04:00→23:33)
[2022-10-21] MEDS: fentaNYL Drip 2500mCg/250mlNS 250 ML IV SCH ×2 (04:01→18:15)
[2022-10-21 04:11] LABS: Bilirubin, Total 0.9 mg/dL (0.2-1.0); Total Protein 6.5 g/dL (6.4-8.2)
[2022-10-21] MEDS: FUROSEMIDE 20 MG/2 ML VIAL IV SCH ×2 (06:08→17:29)
[2022-10-21] MEDS: IPRATROPIUM BROM 0.5 MG/2.5ML INH SOL NEB SCH ×3 (06:25→18:32)
[2022-10-21] MEDS: ALBUTEROL SULF 2.5 MG/0.5ML(0.5%) NEB SOLN NEB SCH ×3 (06:25→18:32)
[2022-10-21] MEDS ORDERED: ENOXAPARIN SOD 40 MG/0.4 ML SYRINGE SC SCH (10:00)
[2022-10-21] MEDS: FAMOTIDINE (10MG/ML) 2ML VL IV SCH (10:20)
[2022-10-21] MEDS: ASPirin 81 mg TAB PO SCH (10:21)
[2022-10-21] MEDS: METOPROLOL TARTRATE 25 MG TAB PO SCH (10:22)
[2022-10-21] MEDS: SODIUM CHLOR 0.9% PF (SALINE LOCK) 10ML VIAL/SYR IV SCH ×2 (10:23→21:27)
[2022-10-21] MEDS ORDERED: cefTRIAXone 1GM/50ML D5W 50 ML IV ONE (13:30)
[2022-10-21] MEDS ORDERED: LACTULOSE 20Gm/30ML SOLN PO ONE (13:30)
[2022-10-21] MEDS ORDERED: DEXTROSE (50%) 50ML SYRG IV PRN (13:30)
[2022-10-21] MEDS ORDERED: TICAGRELOR 90 MG TAB PO ONE (13:30)
[2022-10-21] MEDS ORDERED: POTASSIUM EFFERVESENT TAB 25 MEQ GT ONE (13:30)
[2022-10-21] MEDS: NOREPINEPHRINE 8 MG/250ML KIT 250 ML IV SCH (15:01)
[2022-10-21 15:11] LABS: Urine Bacteria NONE SEEN /hpf (None Seen); Urine Blood Negative /uL (Negative); Urine Specific Gravity 1.031 (1.001-1.035); Urine WBC 5 /hpf (0 - 3)
[2022-10-21] MEDS: LACTULOSE 20Gm/30ML SOLN PO SCH ×2 (17:30→23:29)
[2022-10-21] MEDS: ATORVASTATIN 20 MG TAB PO SCH (21:26)
[2022-10-21] MEDS: TICAGRELOR 90 MG TAB PO SCH (21:26)
[2022-10-22] VITALS (106 sets, daily range): BP systolic 90–146; BP diastolic 53–98
[2022-10-22] MEDS: MIDAZOLAM DRIP 50 mg/50mL 50 ML IV SCH ×4 (02:50→20:15)
[2022-10-22] MEDS: PROPOFOL 100 ML IV SCH ×4 (02:50→16:42)
[2022-10-22 04:27] LABS: Potassium 3.7 mmol/L (3.5-5.1)
[2022-10-22 04:34] LABS: Albumin 2.4 g/dL (3.4-5.0); BUN/Creatinine Ratio 22.7 (10.0-20.0); Calcium 8.9 mg/dL (8.5-10.1)
[2022-10-22] MEDS: VANCOMYCIN 1GM/250ML 250 ML IV SCH ×2 (05:33→16:41)
[2022-10-22] MEDS: ACCU-CHEK COMFORT CURVE STRIP VI SCH ×4 (05:37→23:52)
[2022-10-22] MEDS: LACTULOSE 20Gm/30ML SOLN PO SCH ×4 (05:37→23:52)
[2022-10-22] MEDS: FUROSEMIDE 20 MG/2 ML VIAL IV SCH ×2 (05:54→17:43)
[2022-10-22] MEDS: InsuLIN REG 1unit/0.01ml Soln (100units/ml) SC SCH ×4 (05:56→23:52)
[2022-10-22 06:15] LABS: Basophils # (auto) 0.1 10 ^3/uL (0-0.2); Basophils % (auto) 0.6 % (0.0-2.0); Eosinophils # (auto) 0.8 10 ^3/uL (0-0.8); Eosinophils % (auto) 5.8 % (0.0-7.0); Hematocrit 36.7 % (41.0-53.0); Hemoglobin 12.2 g/dL (13.5-17.5); Lymphocytes # (auto) 2.8 10 ^3/uL (0.4-5.4); Lymphocytes % (auto) 20.8 % (10.0-50.0); Mean Corpuscular Hemoglobin 28.4 pg (28.0-32.0); Mean Corpuscular Hgb Conc. 33.2 g/dL (32.0-36.0); Mean Corpuscular Volume 85.5 fL (80.0-100.0); Monocytes # (auto) 1.5 10 ^3/uL (0-1.3); Monocytes % (auto) 10.9 % (0.0-12.0); Neutrophils # (auto) 8.4 10 ^3/uL (1.6-8.6); Neutrophils % (auto) 61.9 % (37.0-80.0); Red Blood Cells 4.29 10^6/uL (4.5-5.90); Red Cell Distribution Width 13.5 % (11.8-14.3); White Blood Cell 13.6 10^3/uL (4.4-10.8)
[2022-10-22] MEDS: IPRATROPIUM BROM 0.5 MG/2.5ML INH SOL NEB SCH ×4 (06:47→18:38)
[2022-10-22] MEDS: ALBUTEROL SULF 2.5 MG/0.5ML(0.5%) NEB SOLN NEB SCH ×4 (06:47→18:37)
[2022-10-22] MEDS: cefTRIAXone 1GM/50ML D5W 50 ML IV SCH (08:42)
[2022-10-22] MEDS: TICAGRELOR 90 MG TAB PO SCH ×2 (09:31→22:29)
[2022-10-22] MEDS: POTASSIUM EFFERVESENT TAB 25 MEQ GT SCH (09:32)
[2022-10-22] MEDS: FAMOTIDINE (10MG/ML) 2ML VL IV SCH (09:32)
[2022-10-22] MEDS: SODIUM CHLOR 0.9% PF (SALINE LOCK) 10ML VIAL/SYR IV SCH ×2 (09:33→22:29)
[2022-10-22] MEDS: ASPirin 81 mg TAB PO SCH (09:34)
[2022-10-22] MEDS: ENOXAPARIN SOD 40 MG/0.4 ML SYRINGE SC SCH (09:35)
[2022-10-22] MEDS: fentaNYL Drip 2500mCg/250mlNS 250 ML IV SCH (09:38)
[2022-10-22] MEDS: NOREPINEPHRINE 8 MG/250ML KIT 250 ML IV SCH (16:39)
[2022-10-22] MEDS: ACETAMINOPHEN 500 MG TAB PO PRN (16:41)
[2022-10-22] MEDS: ATORVASTATIN 20 MG TAB PO SCH (22:00)
[2022-10-23] VITALS (107 sets, daily range): BP systolic 86–181; BP diastolic 49–94
[2022-10-23] MEDS: MIDAZOLAM DRIP 50 mg/50mL 50 ML IV SCH ×3 (03:28→11:50)
[2022-10-23] MEDS: PROPOFOL 100 ML IV SCH ×5 (03:28→23:58)
[2022-10-23 04:16] LABS: Basophils # (auto) 0.1 10 ^3/uL (0-0.2); Basophils % (auto) 1.1 % (0.0-2.0); Eosinophils # (auto) 0.8 10 ^3/uL (0-0.8); Eosinophils % (auto) 7.6 % (0.0-7.0); Hematocrit 33.4 % (41.0-53.0); Hemoglobin 11.5 g/dL (13.5-17.5); Lymphocytes # (auto) 2.6 10 ^3/uL (0.4-5.4); Lymphocytes % (auto) 24.7 % (10.0-50.0); Mean Corpuscular Hgb Conc. 34.4 g/dL (32.0-36.0); Mean Corpuscular Volume 84.4 fL (80.0-100.0); Monocytes # (auto) 1.1 10 ^3/uL (0-1.3); Monocytes % (auto) 10.7 % (0.0-12.0); Neutrophils # (auto) 5.8 10 ^3/uL (1.6-8.6); Neutrophils % (auto) 55.9 % (37.0-80.0); Nucleated Red Blood Cells % 0.1 %; Red Blood Cells 3.96 10^6/uL (4.5-5.90); Red Cell Distribution Width 13.7 % (11.8-14.3); White Blood Cell 10.4 10^3/uL (4.4-10.8)
[2022-10-23] MEDS: fentaNYL Drip 2500mCg/250mlNS 250 ML IV SCH ×2 (04:47→22:04)
[2022-10-23] MEDS: VANCOMYCIN 1GM/250ML 250 ML IV SCH ×2 (04:57→18:32)
[2022-10-23 05:00] LABS: Calcium 8.8 mg/dL (8.5-10.1); Potassium 3.3 mmol/L (3.5-5.1)
[2022-10-23 05:03] LABS: Bilirubin, Total 0.7 mg/dL (0.2-1.0); Total Protein 7.2 g/dL (6.4-8.2)
[2022-10-23] MEDS: InsuLIN REG 1unit/0.01ml Soln (100units/ml) SC SCH ×4 (05:54→23:56)
[2022-10-23] MEDS: ACCU-CHEK COMFORT CURVE STRIP VI SCH ×4 (05:54→23:56)
[2022-10-23] MEDS: FUROSEMIDE 20 MG/2 ML VIAL IV SCH ×2 (05:54→18:33)
[2022-10-23] MEDS: LACTULOSE 20Gm/30ML SOLN PO SCH ×3 (05:54→22:00)
[2022-10-23] MEDS: IPRATROPIUM BROM 0.5 MG/2.5ML INH SOL NEB SCH ×3 (06:00→18:06)
[2022-10-23] MEDS: ALBUTEROL SULF 2.5 MG/0.5ML(0.5%) NEB SOLN NEB SCH ×3 (06:00→18:06)
[2022-10-23] MEDS: TICAGRELOR 90 MG TAB PO SCH ×2 (08:21→21:33)
[2022-10-23] MEDS: cefTRIAXone 1GM/50ML D5W 50 ML IV SCH (08:21)
[2022-10-23] MEDS: ENOXAPARIN SOD 40 MG/0.4 ML SYRINGE SC SCH (08:21)
[2022-10-23] MEDS: FAMOTIDINE (10MG/ML) 2ML VL IV SCH (08:21)
[2022-10-23] MEDS: ACETAMINOPHEN 500 MG TAB PO PRN (08:21)
[2022-10-23] MEDS: ASPirin 81 mg TAB PO SCH (08:22)
[2022-10-23] MEDS: SODIUM CHLOR 0.9% PF (SALINE LOCK) 10ML VIAL/SYR IV SCH ×2 (08:22→21:35)
[2022-10-23] MEDS: POTASSIUM EFFERVESENT TAB 25 MEQ GT SCH (08:22)
[2022-10-23] MEDS ORDERED: POTASSIUM EFFERVESENT TAB 25 MEQ GT ONE (14:00)
[2022-10-23] MEDS ORDERED: METOCLOPRAMIDE HCL 5MG/ml INJ 2ml VIAL IV ONE (14:00)
[2022-10-23] MEDS ORDERED: CEFEPIME 2 GM in SODIUM CHL 0.9% 50 ML IV ONE (14:00)
[2022-10-23] MEDS ORDERED: Jevity 1.2 Cal/Fiber 1 Liter GT SCH (14:00)
[2022-10-23] MEDS: NOREPINEPHRINE 8 MG/250ML KIT 250 ML IV SCH (17:00)
[2022-10-23] MEDS: METOCLOPRAMIDE HCL 5MG/ml INJ 2ml VIAL IV SCH (21:32)
[2022-10-23] MEDS: ATORVASTATIN 20 MG TAB PO SCH (21:33)
[2022-10-23] MEDS: CEFEPIME 2 GM in SODIUM CHL 0.9% 50 ML IV SCH (21:36)
[2022-10-24] VITALS (91 sets, daily range): BP systolic 87–150; BP diastolic 49–104
[2022-10-24] MEDS: ACETAMINOPHEN 500 MG TAB PO PRN (00:10)
[2022-10-24] MEDS: PROPOFOL 100 ML IV SCH ×3 (03:28→15:32)
[2022-10-24 04:23] LABS: Basophils # (auto) 0.2 10 ^3/uL (0-0.2); Basophils % (auto) 1.2 % (0.0-2.0); Eosinophils # (auto) 0.7 10 ^3/uL (0-0.8); Eosinophils % (auto) 4.7 % (0.0-7.0); Hematocrit 35.1 % (41.0-53.0); Lymphocytes % (auto) 13.4 % (10.0-50.0); Mean Corpuscular Hgb Conc. 34.3 g/dL (32.0-36.0); Mean Corpuscular Volume 84.6 fL (80.0-100.0); Monocytes # (auto) 1.2 10 ^3/uL (0-1.3); Neutrophils # (auto) 11.1 10 ^3/uL (1.6-8.6); Neutrophils % (auto) 72.7 % (37.0-80.0); Nucleated Red Blood Cells % 0.1 %; Red Blood Cells 4.15 10^6/uL (4.5-5.90); Red Cell Distribution Width 13.9 % (11.8-14.3); White Blood Cell 15.2 10^3/uL (4.4-10.8)
[2022-10-24 04:43] LABS: BUN/Creatinine Ratio 23.1 (10.0-20.0); Calcium 8.8 mg/dL (8.5-10.1); Potassium 3.7 mmol/L (3.5-5.1)
[2022-10-24] MEDS: VANCOMYCIN 1GM/250ML 250 ML IV SCH ×2 (04:51→18:30)
[2022-10-24] MEDS: InsuLIN REG 1unit/0.01ml Soln (100units/ml) SC SCH ×3 (06:00→18:00)
[2022-10-24] MEDS: FUROSEMIDE 20 MG/2 ML VIAL IV SCH ×2 (06:04→18:30)
[2022-10-24] MEDS: METOCLOPRAMIDE HCL 5MG/ml INJ 2ml VIAL IV SCH ×2 (06:05→14:47)
[2022-10-24] MEDS: CEFEPIME 2 GM in SODIUM CHL 0.9% 50 ML IV SCH ×2 (06:06→14:47)
[2022-10-24] MEDS: ACCU-CHEK COMFORT CURVE STRIP VI SCH ×3 (06:07→18:19)
[2022-10-24] MEDS: IPRATROPIUM BROM 0.5 MG/2.5ML INH SOL NEB SCH ×3 (06:23→18:54)
[2022-10-24] MEDS: ALBUTEROL SULF 2.5 MG/0.5ML(0.5%) NEB SOLN NEB SCH ×3 (06:23→18:53)
[2022-10-24] MEDS: FAMOTIDINE (10MG/ML) 2ML VL IV SCH (10:00)
[2022-10-24] MEDS: POTASSIUM EFFERVESENT TAB 25 MEQ GT SCH (10:00)
[2022-10-24] MEDS: TICAGRELOR 90 MG TAB PO SCH (10:00)
[2022-10-24] MEDS: ASPirin 81 mg TAB PO SCH (10:01)
[2022-10-24] MEDS: ENOXAPARIN SOD 40 MG/0.4 ML SYRINGE SC SCH (10:01)
[2022-10-24] MEDS: LACTULOSE 20Gm/30ML SOLN PO SCH (10:01)
[2022-10-24] MEDS: SODIUM CHLOR 0.9% PF (SALINE LOCK) 10ML VIAL/SYR IV SCH (10:05)
[2022-10-24] MEDS: fentaNYL Drip 2500mCg/250mlNS 250 ML IV SCH (11:51)
[2022-10-24] MEDS: MIDAZOLAM DRIP 50 mg/50mL 50 ML IV SCH (17:00)
[2022-10-24] MEDS: NOREPINEPHRINE 8 MG/250ML KIT 250 ML IV SCH (17:00)
[2022-10-24] MEDS ORDERED: PROPOFOL 100 ML IV SCH (19:00)
== END 2022-10-24 20:30 | DRG 4 ==
LOC: ER 15:59 → OVERFLOW 23:38 → ICU WEST 10-01 03:39
PROVIDERS: ADMIT Nurse Practitioner Family; ATTEND Internal Medicine
PROC: 5A12012 Performance of Cardiac Output, Single, Manual (ICD-10-PCS; 2022-09-30)
PROC: 5A1955Z Respiratory Ventilation, Greater than 96 Consecutive Hours (ICD-10-PCS; 2022-09-30)
PROC: 0BH17EZ Insertion of Endotracheal Airway into Trachea, Via Natural or Artificial Opening (ICD-10-PCS; 2022-09-30)
PROC: 027035Z Dilation of Coronary Artery, One Artery with Two Drug-eluting Intraluminal Devices, Percutaneous Approach (ICD-10-PCS; principal; 2022-10-02)
PROC: 4A023N7 Measurement of Cardiac Sampling and Pressure, Left Heart, Percutaneous Approach (ICD-10-PCS; 2022-10-02)
PROC: B211YZZ Fluoroscopy of Multiple Coronary Arteries using Other Contrast (ICD-10-PCS; 2022-10-02)
PROC: B215YZZ Fluoroscopy of Left Heart using Other Contrast (ICD-10-PCS; 2022-10-02)
PROC: B41FYZZ Fluoroscopy of Right Lower Extremity Arteries using Other Contrast (ICD-10-PCS; 2022-10-02)
PROC: 02HV33Z Insertion of Infusion Device into Superior Vena Cava, Percutaneous Approach (ICD-10-PCS; 2022-10-09)
PROC: B548ZZA Ultrasonography of Superior Vena Cava, Guidance (ICD-10-PCS; 2022-10-09)
PROC: 0B110Z4 Bypass Trachea to Cutaneous, Open Approach (ICD-10-PCS; 2022-10-19)
DX: A41.01 Sepsis due to Methicillin susceptible Staphylococcus aureus (principal); I46.9 Cardiac arrest, cause unspecified; R65.21 Severe sepsis with septic shock; J69.0 Pneumonitis due to inhalation of food and vomit; G93.41 Metabolic encephalopathy; I21.3 ST elevation (STEMI) myocardial infarction of unspecified site; J15.211 Pneumonia due to Methicillin susceptible Staphylococcus aureus; E43 Unspecified severe protein-calorie malnutrition; G93.1 Anoxic brain damage, not elsewhere classified; Z20.822 Contact with and (suspected) exposure to COVID-19; J96.01 Acute respiratory failure with hypoxia; E87.20 Acidosis, unspecified; N17.9 Acute kidney failure, unspecified; E11.22 Type 2 diabetes mellitus with diabetic chronic kidney disease; I13.10 Hypertensive heart and chronic kidney disease without heart failure, with stage 1 through stage 4 chronic kidney disease, or unspecified chronic kidney disease; E66.9 Obesity, unspecified; G25.3 Myoclonus; G93.89 Other specified disorders of brain; I25.10 Atherosclerotic heart disease of native coronary artery without angina pectoris; J98.11 Atelectasis; Z79.82 Long term (current) use of aspirin; Z95.5 Presence of coronary angioplasty implant and graft; Z79.899 Other long term (current) drug therapy; Z68.35 Body mass index [BMI] 35.0-35.9, adult; E87.6 Hypokalemia; E83.39 Other disorders of phosphorus metabolism; E80.6 Other disorders of bilirubin metabolism; N18.32 Chronic kidney disease, stage 3b
CPT/HCPCS: 31500; 36415; 36569; 36600; 70450; 70490; 70551; 71045; 71275; 76705; 76775; 80048; 80053; 80202; 81001; 82140; 82306; 82550; 82565; 82570; 82805; 82962; 83036; 83605; 83735; 83880; 84100; 84132; 84156; 84300; 84443; 84484; 84550; 85025; 85610; 85652; 85730; 86850; 86900; 86901; 87040; 87070; 87077; 87081; 87086; 87147; 87186; 87205; 87426; 92928; 92929; 92950; 93005; 93452; 93970; 94003; 94640; 95819; 96365; 96368; 96375; 96379; 99152; 99153; 99291; C1874; G0378; J0690; J0696; J2001; J2250; J2543; J2704; J3480; J3490; J7042; J7060; Q9967